=== PATIENT | female | born 1950 | race Caucasian/White ===

== ENCOUNTER 2016-11-01 19:16 | Emergency (ER) | payer MEDICARE, MEDICAID ==
[2016-11-01 19:37] VITALS: BP 135/94
[2016-11-01] MEDS ORDERED: traMADol TAB* 50 MG PO ONE (20:08)
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
== END 2016-11-01 20:30 | disposition home or self-care (01) ==
LOC: ED 19:16
DX: Z76.0 Encounter for issue of repeat prescription (principal); R52 Pain, unspecified; F17.210 Nicotine dependence, cigarettes, uncomplicated
CPT/HCPCS: 99281; A9270-GY

== ENCOUNTER 2017-02-18 17:37 | Emergency (ER) | payer MEDICARE, MEDICAID ==
[2017-02-18] MEDS ORDERED: Codeine TAB* 30 MG PO ONE ×2 (19:01)
[2017-02-18 19:45] VITALS: BP 144/77
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
== END 2017-02-18 19:44 | disposition home or self-care (01) ==
LOC: ED 17:37
DX: Z76.0 Encounter for issue of repeat prescription (principal); F17.210 Nicotine dependence, cigarettes, uncomplicated
CPT/HCPCS: 99281; A9270-GY

== ENCOUNTER → 2017-02-19 23:33 | Emergency (ER) | payer MEDICARE, MEDICAID | END | disposition left against medical advice (07) | LOC: ED 23:33 | DX: J34.89 Other specified disorders of nose and nasal sinuses (principal); M54.9 Dorsalgia, unspecified; M79.672 Pain in left foot; M79.671 Pain in right foot; Z53.21 Procedure and treatment not carried out due to patient leaving prior to being seen by health care provider ==

== ENCOUNTER → 2017-04-09 13:36 | Emergency (ER) | payer MEDICARE, MEDICAID ==
[2017-04-09 17:01] VITALS: BP 0/0
== END | disposition left against medical advice (07) ==
LOC: ED 13:36
DX: J34.89 Other specified disorders of nose and nasal sinuses (principal); Z53.21 Procedure and treatment not carried out due to patient leaving prior to being seen by health care provider
CPT/HCPCS: 99281

== ENCOUNTER 2017-05-03 19:42 | Inpatient (IN) | payer MEDICARE, MEDICAID ==
[2017-05-03 20:30] LABS: Hematocrit 44 % (35-47); Hemoglobin 14.3 g/dl (12.0-16.0); Mean Corpuscular HGB Conc 33 g/dl (31-36); Mean Corpuscular Hemoglobin 30 pg (27-31); Mean Corpuscular Volume 92 fL (80-97); Mean Platelet Volume 9 um3 (7.4-10.4); Red Blood Count 4.75 10^6/ul (4.0-5.4); Red Cell Distribution Width 14 % (10.5-15); White Blood Count 11.8 10^3/ul (3.5-10.8)
[2017-05-03 20:45] LABS: ALT 11 U/L (7-52); Alkaline Phosphatase 70 U/L (34-104); BUN/Creatinine Ratio 29.2 (8-20); Blood Urea Nitrogen 19 mg/dL (6-24); CO2 Carbon Dioxide 20 mmol/L (22-32); Chloride 107 mmol/L (101-111); EGFR Non-African American 91.8 (>60); Globulin 3.5 g/dL (2-4); Glucose 94 mg/dL (70-100); Sodium 134 mmol/L (133-145); Total Protein 7.5 g/dL (6.4-8.9)
[2017-05-03 20:48] LABS: Urine Bilirubin Negative (Negative); Urine Glucose Negative (Negative); Urine Nitrite Negative (Negative)
[2017-05-03 21:00] LABS: Benzodiazepine Urine Screen None Detected (None Detect)
[2017-05-03 21:06] LABS: Acetaminophen < 15 mcg/mL; Alcohol < 10 mg/dL (<10); Salicylate < 2.50 mg/dL (<30)
[2017-05-03 21:16] LABS: TSH (Thyroid Stimulating Horm) 1.49 mcIU/mL (0.34-5.60)
[2017-05-03 21:18] LABS: AST 12 U/L (13-39); Anion Gap 7 mmol/L (2-11); Potassium 3.9 mmol/L (3.5-5.0)
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
[2017-05-03] MEDS ORDERED: Haloperidol INJ IV/IM* 5 MG/ML AMP ONE (22:43)
[2017-05-03] MEDS ORDERED: LORazepam INJ* 2 MG/ML 1 ML VIAL ONE (22:43)
[2017-05-03] MEDS ORDERED: diPHENhydraMINE IV* 50 MG/ML 1 ml VIAL (BENADRYL) ONE (22:43)
[2017-05-04] MEDS ORDERED: traMADol TAB* 50 MG ONE
[2017-05-04] MEDS: Nicotine Inhaler* 10 MG AMP INH PRN
[2017-05-04] MEDS ORDERED: Mouth Piece, Nicotine* 1 EACH CARTRIDGE ONE (00:01)
[2017-05-04] MEDS ORDERED: Nicotine Inhaler* 10 MG AMP ONE (00:01)
[2017-05-04] MEDS ORDERED: Haloperidol TAB* 5 MG ONE (00:02)
[2017-05-04] MEDS ORDERED: Cyclobenzaprine TAB* 10 MG ONE (00:02)
[2017-05-04] MEDS ORDERED: Al Hydrox/Mg Hydrox/Simet LIQ* 30 ML UDC PO PRN (00:12)
[2017-05-04] MEDS ORDERED: Mouth Piece, Nicotine* 1 EACH CARTRIDGE INH SCH (00:12)
[2017-05-04] MEDS ORDERED: Nicotine GUM* 2 MG PO PRN (00:12)
[2017-05-04] MEDS: Acetaminophen TAB* 325 MG PO PRN (01:00)
[2017-05-04] MEDS ORDERED: LORazepam TAB(*) 1 MG ONE ×2 (01:00→02:45)
[2017-05-04] MEDS ORDERED: diPHENhydraMINE PO* 50 MG ONE (02:45)
[2017-05-04] MEDS ORDERED: diPHENhydraMINE PO* 50 MG PO ONE (03:00)
[2017-05-04] MEDS ORDERED: LORazepam TAB(*) 1 MG PO ONE (03:00)
[2017-05-04] MEDS: traMADol TAB* 50 MG PO PRN ×4 (05:05→22:32)
[2017-05-04] MEDS: Levothyroxine TAB* 137 MCG TAB PO SCH (06:00)
[2017-05-04] MEDS: Cyclobenzaprine TAB* 10 MG PO SCH ×2 (11:31)
[2017-05-04] MEDS: Nicotine PATCH 21 MG/24 HR* PATCH TRANSDERM SCH (11:32)
[2017-05-04] MEDS: Valsartan TAB* 160 MG PO SCH (11:33)
[2017-05-04] MEDS: Multivitamins ADULT w/MIN LIQ* 15 ML UDC PO SCH (11:36)
[2017-05-04] MEDS: Progesterone MICRONIZED(NF) 200 MG CAP PO SCH ×2 (11:47→20:48)
[2017-05-04] MEDS: Haloperidol TAB* 10 MG PO SCH ×2 (20:48)
[2017-05-04] MEDS: Nicotine Patch Removal NOTE PATCH OFF SCH (21:05)
--- NOTE | 2017-05-04 21:20 | HP ---
PSYCHIATRIC HISTORY AND PHYSICAL: DATE OF ADMISSION: 05/03/17 JUSTIFICATION FOR ADMISSION: The patient is in need of 24-hour supervision and care secondary to agitated psychotic behavior and inability to care for herself in a less restrictive setting. CHIEF COMPLAINT: "Why am I here? I need to get back to work." HISTORY OF PRESENT ILLNESS: The patient is a 66-year-old, single, white female with history of schizoaffective disorder, who arrives from the [facility] to the emergency department via ambulance, which she called with initial complaints of generalized pain, who presented as agitated, disruptive, and psychotic, resulting in involuntary psychiatric admission. My understanding is that she claims to have run out of her tramadol pain medication and came to the ED seeking pain relief. Apparently, she was not treated to her satisfaction, became agitated. She has a well known history of mental illness and has a tendency to call multiple local politicians as well as administrators here in our hospital claiming to be member of the [facility]. These delusions are fairly fixed; however, when she becomes psychiatrically destabilized, she tends to be more overt and more aggressive in her assertions. She was pressured, paranoid, disorganized, and delusional in our emergency room and verbal attempts to deescalate the patient were unsuccessful resulting in her receiving Haldol, Ativan, and Benadryl via IM injection after declining several oral versions of these medications. It is notable that her barbiturate screen was presumptive positive, although rest of her urine drug screen was negative. I did speak with member of [facility], who indicated that the patient has been noncompliant with medications or outpatient therapies since being discharged from [facility] in August of 2016. PAST PSYCHIATRIC HISTORY: The patient's most recent hospitalization here at [facility] was in July of 2016 under the service of Dr. Vazquez. At that time, she was quite agitated and refusing medications and was discharged to the [facility]. There at [facility] , she pursued release through the court and actually won her case and was discharged following only a week and a half of state psychiatric hospitalization. Since there, it is not clear that she had any mental health treatment. She has had multiple state hospitalizations in the past. One of interesting facet of her illnesses is that she did not develop mental illness until her late 30s. Prior to this, she had been fairly normal and able to function in the community independently. Since the onset of her illness, she has been difficult to treat due to chronic paranoia and thought disorganization. Her most recent diagnoses include schizoaffective disorder, bipolar type, as well as borderline personality disorder. SUBSTANCE ABUSE HISTORY: There is an indication that she has been a heavy abuser of opioid pain relievers in the past; however, she denies this. Urine drug screen is positive for barbiturates. She denies to me that she abuses illicit drugs or alcohol. She does admit to smoking between 1 and 2 packs of cigarettes per day. PAST MEDICAL HISTORY: Significant for arthritis, chronic back pain, chronic knee pain, history of foot plantar fasciitis, history of duodenal ulcer with GI bleed in 2000, migraine headaches, history of fracture of nose, hypertension, and hypothyroidism. FAMILY PSYCHIATRIC HISTORY: The patient denies any mental illness in her extended family. SOCIAL HISTORY: The patient lives in the [facility] with a cat. She states she has never been . She does not have any children. She does have a sister named Shanthi. She does have case management services through adult protective services. Currently, she is on disability and is her own equal opportunity representative payee, although this function used to be handled by adult protective services. The patient reports that she graduated from [employer] with a BA in Latvian literature; however, we cannot confirm this. She is currently unemployed, although she insists that she works for the [employer]. She denies any history of legal problems, although it is clear that she was on an AOT at one point, most likely between 2003 and 2004. REVIEW OF SYSTEMS: The patient denies headache or double vision. She does endorse neuropathic pain in her feet as well as sore back. Other than this, she denies sore throat, cough, chest pain, or difficulty breathing. She denies abdominal pain, nausea, vomiting, diarrhea, or constipation. She denies difficulty ambulating, rashes, enlarged lymph nodes, changes in weight, or fevers. PHYSICAL EXAMINATION VITAL SIGNS: Blood pressure 133/97, heart rate 102, respiratory rate 18, temperature 98.4 degrees Fahrenheit, oxygen saturations are 97% on room air. HEENT: Head is normocephalic, atraumatic. NECK: Supple. CHEST: Clear to auscultation bilaterally. CARDIAC: Exam reveals normal heart sounds. ABDOMEN: Soft and nontender. MUSCULOSKELETAL: Reveals full range of motion in all 4 extremities. NEUROLOGICAL: She appears to be grossly intact with no focal deficits. SKIN: Warm and dry. MENTAL STATUS EXAM: The patient is a middle-aged, white female, with close- cut guaman hair, eye glasses. She is somewhat disheveled, wearing a bulky, oversized black T-shirt, black pants. Her speech is loud and quite expressive, somewhat difficult to establish a rapport with her. She is paranoid and suspicious. Mood appears to be irritable with a somewhat labile affect. Thought process is disorganized and highly somatic. Thought Content: Significant for delusions that she is in the [place]. She denies auditory or visual hallucinations. Insight and judgment are markedly impaired given her noncompliance with outpatient treatment. Cognitively, she is awake and alert with what would appear to be an average intellect. LABORATORY DATA: Complete blood count reveals slightly elevated white blood cells at 11.8, lymphocyte percentage is low at 23.4. Complete metabolic panel shows an elevated CDB-ri-delvxaxgyb ratio of 29.2. AST is low at 12. Urinalysis is within normal limits. Urine drug screen is positive only for barbiturates. Negative for all other substance tested including alcohol. DIAGNOSES: [place] I: Schizoaffective disorder, bipolar type. [place] II: Borderline personality disorder by history. [place] III: Arthritis, chronic back pain, chronic right knee pain, history of plantar fasciitis, history of duodenal ulcer, migraine, history of fracture of nose, hypertension, and hypothyroidism. [place] IV: Severe primary support and housing stressors. [place] V: At this time is 30. IMPRESSION: The patient is a 66-year-old, single, white female with schizoaffective disorder, who brought herself to the emergency room seeking relief from pain, but was quite agitated and psychotic in the emergency room resulting in stat medications and involuntary admission to the behavioral science unit. She has not been compliant with medications and is quite irritable, paranoid, and labile. She is demanding release at this time. PLAN: The patient is admitted to the behavioral health unit on the adult side and placed on q.15-minute checks for her own safety. We have resumed her outpatient medication regimen including cyclobenzaprine 5 mg daily, Haldol 10 mg nightly, Synthroid 137 mcg daily, progesterone 200 mg p.o. b.i.d., valsartan 160 mg p.o. daily, and tramadol 50 mg every 6 hours as needed for pain. We will check and see whether she is compliant with medications and if she is not, it may require that we go to court for treatment over objection, we cannot rule out transfer to the [facility] psychiatric facility at this time. [id number]/CPS #: [id number] [address] HOSPITALJessica
[2017-05-05] MEDS: traMADol TAB* 50 MG PO PRN ×3 (07:10→20:09)
[2017-05-05] MEDS: Cyclobenzaprine TAB* 10 MG PO SCH (08:28)
[2017-05-05] MEDS: Levothyroxine TAB* 137 MCG TAB PO SCH (08:28)
[2017-05-05] MEDS: Valsartan TAB* 160 MG PO SCH (08:28)
[2017-05-05] MEDS: Multivitamins ADULT w/MIN LIQ* 15 ML UDC PO SCH (08:29)
[2017-05-05] MEDS: Nicotine PATCH 21 MG/24 HR* PATCH TRANSDERM SCH (08:30)
[2017-05-05] MEDS: Progesterone MICRONIZED(NF) 200 MG CAP PO SCH ×2 (08:31→20:44)
[2017-05-05] MEDS: Nicotine Inhaler* 10 MG AMP INH PRN (10:38)
--- NOTE | 2017-05-05 15:30 | PN ---
Subjective - Subjective Service Type: 25108 Hosp care 15 min low complexity Subjective: The patient is calm and respectful, albeit delusional. She has represented no behavioral problems on the unit and would like to be discharged. She is compliant with haloperidol 10mg PO nightly. Objective - Appearance Appearance: Well Developed/Nourished Dysmorphic Features: No Hygiene: Normal Grooming: Fairly Well Kept - Behavior Psychomotor Activities: Normal Exhibits Abnormal Movement: No - Attitude and Relatedness Attitude and Relatedness: Cooperative Eye Contact: Fair - Speech Quality: Unpressured Latencies: Normal Quantity: Appropriate - Mood Patient's Decription of Mood: "Fine" - Affect Observed Affect: Fair Affect Consistent with: Euthymia - Thought Process Patient's Thought Process: Disorganized Thought Content: Yes Paranoid Ideation, No Passive Wish, No Suicidal Planning, No Homicidal Ideation - Sensorium Experiencing Hallucinations: No, Sensorium is Clear Type of Hallucinations: Visual: No, Auditory: No, Command: No - Level of Consciousness Level of Consciousness: Alert Orientation: Yes Intact, Yes Orientated to Time, Yes Orientated to Place, Yes Orientated to Person - Impulse Control Impulse Control: Poor - Insight and Judgement Insight and Judgement: Impaired - Group Participation Particating in Group Activities: No - Medication Management Medication Management Adherence: Yes Assessment - Assessment Merits Inpatient Hospitalization: Consolidate Improvements, Pending Safe DC Plan Inpatient DSM-IV Dx: Schizoaffective, Bipolar Type Clinical Impression: 66 y.o. chronically mentally ill, domiciled, single, white female with a hx of schizoaffective DO who self-referred to the ED for chief complaint of back pain , who was subsequently agitated and psychotic in the ER, requiring stat antipsychotic medications and involuntary admission to the [facility] for her inability to care for herself. Plan - Plan Treatment Plan: Name: MAGALIE MORRISSEY Birthdate: 1950 [id number] Patient compliant with haldol 10mg nightly and this is the best her behavior has likely been on our unit. Will continue to observe and treat and consider d/ c to home tomorrow, (05/06). Continued Medication Management: Continue Outpt Medication Medications: Current Medications Acetaminophen (Tylenol Tab*) 650 mg PO Q4H PRN PRN Reason: PAIN or TEMP > 101 F Last Admin: 05/04/17 01:00 Dose: 650 mg Al Hydrox/Mg Hydrox/Simethicone (Maalox Plus*) 30 ml PO Q4H PRN PRN Reason: INDIGESTION Cyclobenzaprine HCl (Flexeril Tab*) 5 mg PO DAILY [facility] Last Admin: 05/05/17 08:28 Dose: 5 mg Device (Nicotine Mouth Piece*) 1 each INH .[facility] Haloperidol (Haldol Tab*) 10 mg PO BEDTIME [facility] Last Admin: 05/04/17 20:48 Dose: 10 mg Levothyroxine Sodium (Synthroid Tab*) 68.5 mcg PO DAILY@0600 [facility] Multivitamins (Theragran W/Minerals Liq*) 15 ml PO DAILY [facility] Last Admin: 05/05/17 08:29 Dose: 15 ml Nicotine (Nicotine Inhaler*) 10 mg INH Q2H PRN PRN Reason: CRAVING Last Admin: 05/05/17 10:38 Dose: 10 mg Nicotine (Nicotine Patch 21 Mg/24 Hr*) 1 patch TRANSDERM DAILY@0800 [facility] Last Admin: 05/05/17 08:30 Dose: 1 patch Nicotine Polacrilex (Nicotine Gum*) 2 mg PO Q2H PRN PRN Reason: CRAVING Pharmacy Profile Note (Nicotine Patch Removal Note*) 1 note PATCH OFF 1999 [facility] Last Admin: 05/04/17 21:05 Dose: 1 note Progesterone (Progesterone Micronized(Nf)) 200 mg PO BID [facility] Last Admin: 05/05/17 08:31 Dose: Not Given Tramadol HCl (Ultram*) 50 mg PO Q6H PRN PRN Reason: PAIN - BACK Last Admin: 05/05/17 13:08 Dose: 50 mg Valsartan (Diovan Tab*) 160 mg PO DAILY [facility] Last Admin: 05/05/17 08:28 Dose: 160 mg - Discharge Plan Discharge Plan: Inpatient Hospitalization
[2017-05-05] MEDS: Acetaminophen TAB* 325 MG PO PRN ×2 (16:29→21:16)
[2017-05-05] MEDS: Nicotine Patch Removal NOTE PATCH OFF SCH (20:43)
[2017-05-05] MEDS: Haloperidol TAB* 10 MG PO SCH (20:43)
[2017-05-06] MEDS: traMADol TAB* 50 MG PO PRN ×2 (03:20→09:28)
[2017-05-06] MEDS ORDERED: Levothyroxine TAB* 137 MCG TAB PO SCH (06:00)
[2017-05-06 08:00] VITALS: BP 140/85
[2017-05-06] MEDS: Nicotine PATCH 21 MG/24 HR* PATCH TRANSDERM SCH (08:22)
[2017-05-06] MEDS: Progesterone MICRONIZED(NF) 200 MG CAP PO SCH (08:22)
[2017-05-06] MEDS: Valsartan TAB* 160 MG PO SCH (08:23)
[2017-05-06] MEDS: Multivitamins ADULT w/MIN LIQ* 15 ML UDC PO SCH (08:23)
[2017-05-06] MEDS: Cyclobenzaprine TAB* 10 MG PO SCH (09:29)
[2017-05-06] MEDS: Nicotine Inhaler* 10 MG AMP INH PRN (11:46)
--- NOTE | 2017-05-06 22:18 | DS ---
DISCHARGE SUMMARY: DATE OF ADMISSION: 05/03/17 DATE OF DISCHARGE: 05/06/17 DISCHARGE DIAGNOSES: [place] I: Schizoaffective disorder, bipolar type. [place] II: Borderline personality disorder by history. [place] III: Arthritis, chronic back pain, chronic right knee pain, history of plantar fascitis, history of duodenal ulcer, migraine, history of fracture of nose, hypertension, and hypothyroidism. [place] IV: Severe primary support and housing stressors. [place] V: At the time of admission was 32 and at the time of discharge is 55. CONDITION AT THE TIME OF DISCHARGE: Improved. The patient is no longer agitated. She has been calm and cooperative throughout her hospitalization. Safe on all checks. She has been taking her medication as prescribed and she is willing to continue to receive treatment in an outpatient setting. The patient has represented no behavior problems on our unit and we do not feel that it is warranted to continue to treat her in such a restrictive setting. For these reasons, it has been determined that she would be safe for discharge and willing to follow up at [facility] and she has a safe apartment in the community to return to. It is notable that the patient remains delusional; for example, feeling that she is a utility agent. These delusions very much represent her baseline and are not likely amenable to inpatient psychiatric treatment. The patient has requested that her medications be called into the [facility] on [facility] and she intends to continue to take them for the time being. MENTAL STATUS EXAM: The patient is a middle aged white female with close cut smith hair, eye glasses. She is wearing a bulky oversized black T-shirt and blank pants. Her speech is terse with the normal rate and tone and volume. Mood is euthymic with a full affect. Thought process is linear and goal directed. Thought content is delusional with standard baseline delusions of being in the [place]. She is denying suicidal or homicidal ideation. She denies auditory or visual hallucinations. Insight and judgement is fair given her willingness to follow up with outpatient treatment. Cognitively, she is awake and alert with what would appear to be an average intellect. DISCHARGE INSTRUCTIONS: Discharge instructions to the patient are as follows: A. Medications: 1. She takes nicotine 21 mg transdermal daily. 2. She takes Haldol 10 mg p.o. q. nightly. 3. Flexeril 5 mg p.o. daily. 4. Synthroid 68.5 mcg p.o. daily. 5. Therapeutic vitamin 1 tablet p.o. daily. 6. Benicar 20 mg p.o. daily. 7. Progesterone 200 mg p.o. b.i.d. 8. Ultram 50 mg p.o. q.6 hours. B. Diet: Regular. C. Activity: As tolerated. The patient is actively trying to discontinue tobacco usage and for this reason , she is agreeable to continuing to take nicotine patch 21 mg transdermally once daily. There are no laboratory or diagnostic studies pending at the time of discharge. D. Followup care: The patient will follow up at the [facility] within 1 week of discharge. HOSPITAL COURSE: Part A. Reason for admission: The patient is a 66-year-old single white female with a history of schizoaffective disorder who arrives from the [facility] to the emergency department via ambulance which she called herself with an initial complaint of generalized pain who went on to present as agitated, disruptive, and psychotic resulting in involuntary psychiatric admission. My understanding is that she claims to have run out of her tramadol pain medication and came to the ED seeking pain relief. Apparently, she was not treated to her satisfaction, became agitated. She has a well-known history of mental illness and has a tendency to call multiple local politicians as well as hospital administrators claiming to be a member of the [facility]. These delusions are fixed; however, when she becomes psychiatrically destabilized, she tends to be more overt and more aggressive in her assertions. In our ED, she was pressured, paranoid, disorganized, and delusional and verbal attempts to deescalate her were unsuccessful ultimately resulting in her receiving Haldol, Ativan and Benadryl via IM injections. It is notable that her barbiturate screen was presumptive positive although the rest of her urine drug screen was negative. I was able to speak with a member of [facility], who indicated that the patient has been noncompliant with medication and outpatient therapies since being discharged from the [facility] in August of 2016. Part B. Psychiatric treatment rendered: The patient was admitted to the adult behavioral health unit where she was placed on q.15-minute checks for her own safety. She took her oral medications in a compliant fashion on the first night of her admission including p.o. Haldol 10 mg. Thereafter, she was safe and cooperative on all checks. By the time I first saw her on the first complete day of her admission, she was already under good behavior control. She was respectful, calm and was not overtly announcing any of her delusional beliefs. To the contrary, she stated she was willing to re-engage with [facility]. She stated that the Haldol was a reasonable medication choice for her and she continued to be adherent with this throughout the remainder of the hospitalization. At this time, the patient only is endorsing delusional ideation when pressed about these subjects. She is calm, cooperative. She is requesting a cab ride home. She has an intact apartment situation at the [facility] and we do not see any benefit to further involuntary inpatient treatment. [id number]/CPS #: [id number] MTDD
== END 2017-05-06 12:30 | disposition home or self-care (01) | DRG 885 ==
LOC: ED 19:42 → BSU 22:59
PROVIDERS: ADMIT Psychiatry & Neurology Psychiatry; ATTEND Psychiatry & Neurology Psychiatry
DX: F25.0 Schizoaffective disorder, bipolar type (principal); B19.10 Unspecified viral hepatitis B without hepatic coma; I10 Essential (primary) hypertension; F60.3 Borderline personality disorder; M19.90 Unspecified osteoarthritis, unspecified site; G89.29 Other chronic pain; M54.9 Dorsalgia, unspecified; M25.561 Pain in right knee; G43.909 Migraine, unspecified, not intractable, without status migrainosus; E03.9 Hypothyroidism, unspecified; F17.210 Nicotine dependence, cigarettes, uncomplicated; J44.9 Chronic obstructive pulmonary disease, unspecified; B19.20 Unspecified viral hepatitis C without hepatic coma; Z91.14 Patient's other noncompliance with medication regimen; Z88.0 Allergy status to penicillin; Z88.8 Allergy status to other drugs, medicaments and biological substances; Z56.0 Unemployment, unspecified; Z87.898 Personal history of other specified conditions; Z90.710 Acquired absence of both cervix and uterus
CPT/HCPCS: 36415; 80053; 80307; 80320; 80329; 81003; 84443; 85025; 99222; 99231; 99238; A9270-GY; G0480; J1200; J1630; J2060

== ENCOUNTER 2017-06-20 18:49 | Emergency (ER) | payer MEDICARE, MEDICAID ==
[2017-06-20] MEDS ORDERED: traMADol TAB* 50 MG PO ONE ×2 (19:25→19:31)
[2017-06-20 19:40] VITALS: BP 127/79
--- NOTE | 2017-06-21 06:15 | ED ---
Vidal Grace Alfonso, scribed for Rob Moran MD on 06/20/17 at 1925 . Complex/Multi-Sys Presentation - HPI Summary HPI Summary: This patient is a 66 year old F presenting to [facility] with a chief complaint of chronic pain since two days ago. Her pain is in her neck, shoulders, back, hips , and feet. She reports vomiting the remainder of her tramadol prescription. She reports having a PCP appointment on 07/05/17. She reports missing two PCP appointments, and disputing her status as a patient with her PCP. The patient rates the pain 9/10 in severity. Pain alleviated by nothing. Patient reports N/ V (two days ago). Patient denies diarrhea, constipation, and abdominal pain. - History Of Current Complaint Chief Complaint: EDGeneral Time Seen by Provider: 06/20/17 19:12 Hx Obtained From: Patient Onset/Duration: Sudden Onset, Lasting Days - 2, Still Present Timing: Constant Severity Initially: Severe - 9/10 pain Alleviating Factor(s): nothing Associated Signs And Symptoms: Positive: Other - N/V (two days ago). Patient denies diarrhea, constipation, and abdominal pain. - Allergies/Home Medications Allergies/Adverse Reactions: Allergies Allergy/AdvReac Type Severity Reaction Status Date / Time Chlorine Allergy Vomiting Verified 06/20/17 18:54 Penicillins Allergy Hallucinati Verified 06/20/17 18:54 ons Red Dye Allergy See Comment Verified 06/20/17 18:54 PMH/Surg Hx/FS Hx/Imm Hx Endocrine/Hematology History: Reports: Hx Thyroid Disease Denies: Hx Anticoagulant Therapy, Hx Blood Disorders, Hx Blood Transfusions, Hx Bone Marrow Disease, Hx Diabetes, Hx Sickle Cell Disease, Hx Unexplained Bleeding Cardiovascular History: Reports: Hx Hypertension Denies: Hx Pacemaker/ICD Respiratory History: Reports: Hx Chronic Obstructive Pulmonary Disease (COPD) Denies: Hx Asthma History: Denies: Hx Renal Disease Musculoskeletal History: Reports: Hx Back Problems Sensory History: Reports: Hx Contacts or Glasses Denies: Hx Hearing Aid Opthamlomology History: Reports: Hx Contacts or Glasses Neurological History: Reports: Hx Migraine Denies: Hx Dementia, Hx Developmental Delay, Hx Headaches, Hx Seizures, Hx Spinal Cord Injury, Hx Transient Ischemic Attacks (TIA), Other Neuro Impairments /Disorders Psychiatric History: Reports: Hx Inpatient Treatment, Hx Community Mental Health Tx, Hx Schizophrenia, Hx Bipolar Disorder, Hx Substance Abuse, Other Psychiatric Issues/Disorders - schizoaffective d/o Denies: Hx Anxiety, Hx Attention Deficit Hyperactivity Disorder, Hx Eating Disorder, Hx Depression, Hx Panic Disorder, Hx Post Traumatic Stress Disorder, Hx of Violent Episodes Against Others - Surgical History Surgery Procedure, Year, and Place: h/o hysterectomy Infectious Disease History: No Infectious Disease History: Reports: Hx Hepatitis - Hep B&C Denies: Hx Clostridium Difficile, Hx Human Immunodeficiency Virus (HIV), Hx Shingles, Hx Tuberculosis, Traveled Outside the [place] in Last 30 Days - Family History Known Family History: Positive: Other - neg: mental health illnesses - Social History Alcohol Use: None Hx Substance Use: Yes Substance Use Type: Reports: Prescribed Hx Tobacco Use: Yes Smoking Status (MU): Heavy Every Day Tobacco Smoker Type: Cigarettes Have You Smoked in the Last Year: Yes Review of Systems Negative: Fever Positive: Vomiting, Nausea, Other - Negative constipation. Negative: Abdominal Pain, Diarrhea Positive: Other - chronic pain All Other Systems Reviewed And Are Negative: Yes Physical Exam - Summary Physical Exam Summary: VITAL SIGNS: Reviewed. GENERAL: Patient is a well-developed and nourished female who is pacing in the room with a good steady walk complaining of pain. Patient is not in any acute respiratory distress. HEAD AND FACE: No signs of trauma. No ecchymosis, hematomas or skull depressions. No sinus tenderness. EYES: PERRLA, EOMI x 2, No injected conjunctiva, no nystagmus. EARS: Hearing grossly intact. Ear canals and tympanic membranes are within normal limits. MOUTH: Oropharynx within normal limits. NECK: Supple, trachea is midline, no adenopathy, no JVD, no carotid bruit, no c- spine tenderness, neck with full ROM. CHEST: Symmetric, no tenderness at palpation LUNGS: Clear to auscultation bilaterally. No wheezing or crackles. CVS: Regular rate and rhythm, S1 and S2 present, no murmurs or gallops appreciated. ABDOMEN: Soft, non-tender. No signs of distention. No rebound no guarding, and no masses palpated. Bowel sounds are normal. EXTREMITIES: FROM in all major joints, no edema, no cyanosis or clubbing. NEURO: Alert and oriented x 3. No acute neurological deficits. Speech is normal and follows commands. SKIN: Dry and warm Triage Information Reviewed: Yes Vital Signs On Initial Exam: Initial Vitals Temp Pulse Resp BP Pulse Ox 97.1 F 103 20 146/108 97 06/20/17 18:51 06/20/17 18:51 06/20/17 18:51 06/20/17 18:51 06/20/17 18:51 Vital Signs Reviewed: Yes Diagnostics - Vital Signs Vital Signs Temp Pulse Resp BP Pulse Ox 06/20/17 18:51 97.1 F 103 20 146/108 97 - Laboratory Lab Statement: Any lab studies that have been ordered have been reviewed, and results considered in the medical decision making process. Complex Multi-Symp Course/Dx Assessment/Plan: This patient is a 66 year old F presenting to [facility] with a chief complaint of chronic pain since two days ago. Her pain is in her neck, shoulders, back, hips, and feet. She reports vomiting the remainder of her tramadol prescription. She reports having a PCP appointment on 07/05/17. She reports missing two PCP appointments, and disputing her status as a patient with her PCP. The patient rates the pain 9/10 in severity. Pain alleviated by nothing. Patient reports N/V (two days ago). Patient denies diarrhea, constipation, and abdominal pain. This patient reports a history of chronic pain. She ran out of pain medication, thus is requesting Ultram. She reports a PCP appointment scheduled on 07/05/17, and she will call tomorrow to schedule another PCP appointment sooner. She will be discharged to home and will follow up from her PCP. The patient is agreeable with this plan. The patient is hemodynamically stable and alert and oriented x3. - Diagnoses Provider Diagnoses: Chronic pain Discharge - Discharge Plan Condition: Stable Disposition: HOME Patient Education Materials: Chronic Pain (ED) Referrals: Fabricio Oropeza DO [Primary Care Provider] - 1 Day Additional Instructions: RETURN TO THE EMERGENCY DEPARTMENT FOR CHANGING OR WORSENING SYMPTOMS. The documentation as recorded by the Vidal ashton Alfonso accurately reflects the service I personally performed and the decisions made by me, Rob Moran MD.
== END 2017-06-20 19:45 | disposition home or self-care (01) ==
LOC: ED 18:49
DX: G89.29 Other chronic pain (principal); I10 Essential (primary) hypertension; E07.9 Disorder of thyroid, unspecified; M54.2 Cervicalgia; M25.512 Pain in left shoulder; M25.511 Pain in right shoulder; M25.552 Pain in left hip; M25.551 Pain in right hip; M79.672 Pain in left foot; M79.671 Pain in right foot
CPT/HCPCS: 99281; A9270-GY

== ENCOUNTER 2017-06-21 19:44 | Emergency (ER) | payer MEDICARE, MEDICAID ==
[2017-06-21] MEDS ORDERED: traMADol TAB* 50 MG PO ONE (22:09)
--- NOTE | 2017-06-21 22:14 | ED ---
Lower Extremity - HPI Summary HPI Summary: Angelia has been having some body work done on her right hip and that has caused it to hurt. She called her MD who called in a prescription for tramadol but she can't fill it until tomorrow AM and carmelina in requesting tramadol to get her though the night. - History of Current Complaint Chief Complaint: EDPrescriptionNeeded Stated Complaint: PAIN ALL OVER Hx Obtained From: Patient Mechanism Of Injury: Other - PT Onset of Pain: Hours Onset/Duration: Hours Severity Initially: Moderate Severity Currently: Moderate Pain Intensity: 8 Timing: Constant Location: Is Discrete @ - right hip Character Of Pain: Sharp Associated Signs And Symptoms: Positive: Negative Aggravating Factor(s): Standing, Ambulation Alleviating Factor(s): Nothing Able to Bear Weight: Yes - Allergies/Home Medications Allergies/Adverse Reactions: Allergies Allergy/AdvReac Type Severity Reaction Status Date / Time Chlorine Allergy Vomiting Verified 06/20/17 18:54 Penicillins Allergy Hallucinati Verified 06/20/17 18:54 ons Red Dye Allergy See Comment Verified 06/20/17 18:54 PMH/Surg Hx/FS Hx/Imm Hx Endocrine/Hematology History: Reports: Hx Thyroid Disease Denies: Hx Anticoagulant Therapy, Hx Blood Disorders, Hx Blood Transfusions, Hx Bone Marrow Disease, Hx Diabetes, Hx Sickle Cell Disease, Hx Unexplained Bleeding Cardiovascular History: Reports: Hx Hypertension Denies: Hx Pacemaker/ICD Respiratory History: Reports: Hx Chronic Obstructive Pulmonary Disease (COPD) Denies: Hx Asthma History: Denies: Hx Renal Disease Musculoskeletal History: Reports: Hx Back Problems Sensory History: Reports: Hx Contacts or Glasses Denies: Hx Hearing Aid Opthamlomology History: Reports: Hx Contacts or Glasses Neurological History: Reports: Hx Migraine Denies: Hx Dementia, Hx Developmental Delay, Hx Headaches, Hx Seizures, Hx Spinal Cord Injury, Hx Transient Ischemic Attacks (TIA), Other Neuro Impairments /Disorders Psychiatric History: Reports: Hx Inpatient Treatment, Hx Community Mental Health Tx, Hx Schizophrenia, Hx Bipolar Disorder, Hx Substance Abuse, Other Psychiatric Issues/Disorders - schizoaffective d/o Denies: Hx Anxiety, Hx Attention Deficit Hyperactivity Disorder, Hx Eating Disorder, Hx Depression, Hx Panic Disorder, Hx Post Traumatic Stress Disorder, Hx of Violent Episodes Against Others - Surgical History Surgery Procedure, Year, and Place: h/o hysterectomy Infectious Disease History: No Infectious Disease History: Reports: Hx Hepatitis - Hep B&C Denies: Hx Clostridium Difficile, Hx Human Immunodeficiency Virus (HIV), Hx Shingles, Hx Tuberculosis, Traveled Outside the [place] in Last 30 Days - Family History Known Family History: Positive: Other - neg: mental health illnesses - Social History Alcohol Use: None Hx Substance Use: Yes Substance Use Type: Reports: Prescribed Hx Tobacco Use: Yes Smoking Status (MU): Heavy Every Day Tobacco Smoker Type: Cigarettes Have You Smoked in the Last Year: Yes Review of Systems Positive: Arthralgia, Myalgia All Other Systems Reviewed And Are Negative: Yes Physical Exam Triage Information Reviewed: Yes Vital Signs On Initial Exam: Initial Vitals Temp Pulse Resp BP Pulse Ox 97.7 F 103 20 121/92 97 06/21/17 20:07 06/21/17 20:07 06/21/17 20:07 06/21/17 20:07 06/21/17 20:07 Vital Signs Reviewed: Yes Appearance: Positive: Well-Appearing Skin: Positive: Warm Eyes: Positive: Normal Respiratory/Lung Sounds: Positive: Breath Sounds Present Cardiovascular: Positive: Normal Musculoskeletal: Positive: Normal Neurological: Positive: Normal Diagnostics - Vital Signs Vital Signs Temp Pulse Resp BP Pulse Ox 06/21/17 20:07 97.7 F 103 20 121/92 97 - Laboratory Lab Statement: Any lab studies that have been ordered have been reviewed, and results considered in the medical decision making process. Lower Extremity Course/Dx - Diagnoses Provider Diagnoses: Acute right hip pain Discharge - Discharge Plan Condition: Stable Disposition: HOME
[2017-06-21 22:25] VITALS: BP 122/91
== END 2017-06-21 22:23 | disposition home or self-care (01) ==
LOC: ED 19:44
DX: M25.551 Pain in right hip (principal); I10 Essential (primary) hypertension; J44.9 Chronic obstructive pulmonary disease, unspecified; F20.9 Schizophrenia, unspecified; F31.9 Bipolar disorder, unspecified; F17.210 Nicotine dependence, cigarettes, uncomplicated
CPT/HCPCS: 99282; A9270-GY

== ENCOUNTER → 2017-07-21 06:19 | Emergency (ER) | payer MEDICARE, MEDICAID ==
[2017-07-21 06:24] VITALS: BP 159/106
== END | disposition left against medical advice (07) ==
LOC: ED 06:19
DX: R52 Pain, unspecified (principal); Z53.21 Procedure and treatment not carried out due to patient leaving prior to being seen by health care provider

== ENCOUNTER 2017-08-02 16:50 | Emergency (ER) | payer MEDICARE, MEDICAID ==
[2017-08-02 19:31] VITALS: BP 169/103
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
== END 2017-08-02 20:01 | disposition home or self-care (01) ==
LOC: ED 16:50
DX: G89.29 Other chronic pain (principal); J44.9 Chronic obstructive pulmonary disease, unspecified; F17.210 Nicotine dependence, cigarettes, uncomplicated; Z88.0 Allergy status to penicillin
CPT/HCPCS: 99281

== ENCOUNTER 2017-09-11 19:11 | Emergency (ER) | payer MEDICARE, MEDICAID ==
[2017-09-11] MEDS ORDERED: traMADol TAB* 50 MG PO ONE (20:43)
--- NOTE | 2017-09-11 21:01 | ED ---
Darryl Grace Tiffany, scribed for Fito Simmons on 09/11/17 at 2047 . Complex/Multi-Sys Presentation - HPI Summary HPI Summary: This patient is a 67 year old F presenting to [facility] with a chief complaint of chronic body pain since one hour ago. The patient rates the pain 9/10 in severity. Symptoms aggravated by nothing. Symptoms alleviated by nothing. Patient requests prescription for Tramadol because her primary care provider was unable to refill her prescription. - History Of Current Complaint Chief Complaint: EDGeneral Time Seen by Provider: 09/11/17 20:27 Hx Obtained From: Patient Onset/Duration: Lasting Hours - 1 hour, Still Present Severity Currently: Severe - 9/10 Aggravating Factor(s): Nothing Alleviating Factor(s): Nothing - Allergies/Home Medications Allergies/Adverse Reactions: Allergies Allergy/AdvReac Type Severity Reaction Status Date / Time Chlorine Allergy Vomiting Verified 07/21/17 06:25 Penicillins Allergy Hallucinati Verified 07/21/17 06:25 ons Red Dye Allergy See Comment Verified 07/21/17 06:25 PMH/Surg Hx/FS Hx/Imm Hx Previously Healthy: No Endocrine/Hematology History: Reports: Hx Thyroid Disease Denies: Hx Anticoagulant Therapy, Hx Blood Disorders, Hx Blood Transfusions, Hx Bone Marrow Disease, Hx Diabetes, Hx Sickle Cell Disease, Hx Unexplained Bleeding Cardiovascular History: Reports: Hx Hypertension Denies: Hx Pacemaker/ICD Respiratory History: Reports: Hx Chronic Obstructive Pulmonary Disease (COPD) Denies: Hx Asthma History: Denies: Hx Renal Disease Musculoskeletal History: Reports: Hx Back Problems Sensory History: Reports: Hx Contacts or Glasses Opthamlomology History: Reports: Hx Contacts or Glasses Neurological History: Reports: Hx Migraine Denies: Hx Dementia, Hx Developmental Delay, Hx Headaches, Hx Seizures, Hx Spinal Cord Injury, Hx Transient Ischemic Attacks (TIA), Other Neuro Impairments /Disorders Psychiatric History: Reports: Hx Inpatient Treatment, Hx Community Mental Health Tx, Hx Schizophrenia, Hx Bipolar Disorder, Hx Substance Abuse, Other Psychiatric Issues/Disorders - schizoaffective d/o Denies: Hx Anxiety, Hx Attention Deficit Hyperactivity Disorder, Hx Eating Disorder, Hx Depression, Hx Panic Disorder, Hx Post Traumatic Stress Disorder, Hx of Violent Episodes Against Others - Surgical History Surgery Procedure, Year, and Place: h/o hysterectomy Infectious Disease History: No Infectious Disease History: Reports: Hx Hepatitis - Hep B&C Denies: Hx Clostridium Difficile, Hx Human Immunodeficiency Virus (HIV), Hx Shingles, Hx Tuberculosis, Traveled Outside the [place] in Last 30 Days - Family History Known Family History: Positive: Other - neg: mental health illnesses - Social History Alcohol Use: Occasionally Alcohol Amount: "once or twice a month" Hx Substance Use: Yes Substance Use Type: Reports: None Hx Tobacco Use: Yes Smoking Status (MU): Heavy Every Day Tobacco Smoker Type: Cigarettes Have You Smoked in the Last Year: Yes Review of Systems Negative: Fever Positive: Other - Chronic body pain All Other Systems Reviewed And Are Negative: Yes Physical Exam - Summary Physical Exam Summary: Appearance: Well appearing, no pain distress Skin: warm, dry, reflects adequate perfusion Head/face: normal Eyes: EOMI, DEBI ENT: normal Neck: supple, non-tender Respiratory: CTA, breath sounds present Cardiovascular: RRR, pulses symmetrical Abdomen: non-tender, soft Bowel: present Musculoskeletal: normal, strength/ROM intact Neuro: normal, sensory motor intact, A&Ox3 Triage Information Reviewed: Yes Vital Signs On Initial Exam: Initial Vitals Temp Pulse Resp BP Pulse Ox 97.1 F 92 18 140/81 96 09/11/17 19:15 09/11/17 19:15 09/11/17 19:15 09/11/17 19:15 09/11/17 19:15 Vital Signs Reviewed: Yes - [place] Coma Scale Coma Scale Total: 15 Diagnostics - Vital Signs Vital Signs Temp Pulse Resp BP Pulse Ox 09/11/17 19:15 97.1 F 92 18 140/81 96 - Laboratory Lab Statement: Any lab studies that have been ordered have been reviewed, and results considered in the medical decision making process. Complex Multi-Symp Course/Dx Course Of Treatment: This patient is a 67 year old F presenting to [facility] with a chief complaint of chronic body pain since one hour ago. Patient requests prescription for Tramadol because her primary care provider was unable to refill her prescription. In the ED course the patient was given Ultram. Patient will be discharged with prescription for Ultram and follow up from PCP. The patient is agreeable with this plan. - Diagnoses Provider Diagnoses: Chronic body pain, Drug-seeking behavior Discharge - Discharge Plan Condition: Stable Disposition: HOME Prescriptions: traMADol TAB* [Ultram*] 50 mg PO Q12H PRN #10 tab MDD 2 PRN Reason: Pain Patient Education Materials: Chronic Pain (ED) Referrals: Yvonne Espinosa MD [Primary Care Provider] - 3 Days Additional Instructions: Follow up with primary care provider in 3 days. Return to the Emergency Room if current symptoms worsen or if new symptoms develop. The documentation as recorded by the Darryl ashton Tiffany accurately reflects the service I personally performed and the decisions made by Iris valenzuela Emmanuel.
[2017-09-11 21:10] VITALS: BP 122/90
== END 2017-09-11 21:09 | disposition home or self-care (01) ==
LOC: ED 19:11
DX: G89.29 Other chronic pain (principal); Z76.5 Malingerer [conscious simulation]; F17.210 Nicotine dependence, cigarettes, uncomplicated; Z88.0 Allergy status to penicillin
CPT/HCPCS: 99282; A9270-GY

== ENCOUNTER → 2018-07-02 11:36 | Emergency (ER) | payer MEDICARE, MEDICAID ==
[~2018-07-02 11:36] MED LIST: traMADol TAB* 50 MG PO ONE
[2018-07-02 13:14] VITALS: BP 147/87
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
== END | disposition home or self-care (01) ==
LOC: ED 11:36
DX: M54.9 Dorsalgia, unspecified (principal); G89.29 Other chronic pain; F17.210 Nicotine dependence, cigarettes, uncomplicated; I10 Essential (primary) hypertension; F31.9 Bipolar disorder, unspecified; F20.9 Schizophrenia, unspecified
CPT/HCPCS: 99282; A9270-GY

== ENCOUNTER 2019-04-09 01:38 | Emergency (ER) | payer MEDICARE, MEDICAID ==
[2019-04-09] MEDS ORDERED: traMADol TAB* 50 MG PO ONE (05:47)
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
[2019-04-09 06:23] VITALS: BP 0/0
== END 2019-04-09 06:00 | disposition home or self-care (01) ==
LOC: ED 01:38
DX: G89.29 Other chronic pain (principal); E07.9 Disorder of thyroid, unspecified; F11.20 Opioid dependence, uncomplicated; I10 Essential (primary) hypertension; J44.9 Chronic obstructive pulmonary disease, unspecified; F17.210 Nicotine dependence, cigarettes, uncomplicated; Z88.0 Allergy status to penicillin
CPT/HCPCS: 99282; A9270-GY

== ENCOUNTER 2019-05-05 18:46 | Emergency (ER) | payer MEDICARE, MEDICAID ==
--- NOTE | 2019-05-05 20:07 | ED ---
Psychiatric Complaint - HPI Summary HPI Summary: This pt is a 68 Y/O F presenting to [facility] with a CC of merritt to her feet due to a heating element on her floor. She states that her housing apartment was a part of the [employer] in a test for reginonalism and stated that she was going to go find out what the government said about the whole activity. She stated that she has no coughs, fevers, CP, abdominal pain, N/V, mood, mental health. She stated that she is going to be writing letters to her contact in the government to find out what she needs to know. She stated that she has been writing reports to multiple contacts and stated that she has credentials in places that she will go and get. She stated that she will go and get the police and state police and bring them here to talk to the hospital. - History Of Current Complaint Chief Complaint: EDPsychosocial Time Seen by Provider: 05/05/19 19:45 Hx Obtained From: Patient Hx From Patient Unobtainable Due To: Other - Pt was uncooperative during her innitial examination ?: No Character: Fearful Aggravating Factor(s): Other - Pt stated that she has electrical merritt to her feet and stated that the government was trying a test at her appartment for "Regionalism" Alleviating Factor(s): Nothing Associated Signs And Symptoms: Positive: Paranoid Behavior Related History: Positive For: Prior Psychiatric Issues - Allergies/Home Medications Allergies/Adverse Reactions: Allergies Allergy/AdvReac Type Severity Reaction Status Date / Time blue dye Allergy Anaphylatic Verified 05/05/19 18:55 Shock Penicillins Allergy Hallucinati Verified 05/05/19 18:55 ons red dye Allergy Anaphylatic Verified 05/05/19 18:55 Shock chlorine Allergy Vomiting Uncoded 04/09/19 02:03 PMH/Surg Hx/FS Hx/Imm Hx Previously Healthy: Yes Endocrine/Hematology History: Reports: Hx Thyroid Disease Denies: Hx Anticoagulant Therapy, Hx Blood Disorders, Hx Blood Transfusions, Hx Bone Marrow Disease, Hx Diabetes, Hx Sickle Cell Disease, Hx Unexplained Bleeding Cardiovascular History: Reports: Hx Hypertension Denies: Hx Pacemaker/ICD Respiratory History: Reports: Hx Chronic Obstructive Pulmonary Disease (COPD) Denies: Hx Asthma History: Denies: Hx Renal Disease Musculoskeletal History: Reports: Hx Back Problems Denies: Hx Osteoporosis Sensory History: Reports: Hx Contacts or Glasses Opthamlomology History: Reports: Hx Contacts or Glasses Neurological History: Reports: Hx Migraine Denies: Hx Dementia, Hx Developmental Delay, Hx Headaches, Hx Seizures, Hx Spinal Cord Injury, Hx Transient Ischemic Attacks (TIA), Other Neuro Impairments /Disorders Psychiatric History: Reports: Hx Inpatient Treatment, Hx Community Mental Health Tx, Hx Schizophrenia, Hx Bipolar Disorder, Hx Substance Abuse, Other Psychiatric Issues/Disorders - schizoaffective d/o Denies: Hx Anxiety, Hx Attention Deficit Hyperactivity Disorder, Hx Eating Disorder, Hx Depression, Hx Panic Disorder, Hx Post Traumatic Stress Disorder, Hx of Violent Episodes Against Others - Surgical History Surgery Procedure, Year, and Place: hysterectomy. TRIPLE HERNIA. DEVIATED SEPTUM Infectious Disease History: Yes Infectious Disease History: Reports: Hx Hepatitis - Hep B&C Denies: Hx Clostridium Difficile, Hx Human Immunodeficiency Virus (HIV), Hx Shingles, Hx Tuberculosis, Traveled Outside the [place] in Last 30 Days - Family History Known Family History: Positive: Other - neg: mental health illnesses, Non- Contributory - Social History Alcohol Use: Occasionally Alcohol Amount: "once or twice a month" Hx Substance Use: Yes Substance Use Type: Reports: None Hx Tobacco Use: Yes Smoking Status (MU): Heavy Every Day Tobacco Smoker Type: Cigarettes Have You Smoked in the Last Year: Yes Review of Systems - ROS Summary Review of Systems Summary: A COMPLETE ROS IS UNOBTAINABLE DUE TO THE PT'S BEING EXTREMELY UNCOOPERATIVE. Positive: Other - Pt complains of merritt to her feet. Positive: Other - Paranoid All Other Systems Reviewed And Are Negative: No Physical Exam - Summary Physical Exam Summary: Appearance: Well appearing, no pain distress Skin: warm, dry, reflects adequate perfusion Head/face: normal Eyes: EOMI, DEBI ENT: normal Neck: supple, non-tender Respiratory: CTA, breath sounds present Cardiovascular: RRR, pulses symmetrical Abdomen: non-tender, soft Musculoskeletal: normal, strength/ROM intact callus/rash over the feet Neuro: normal, sensory motor intact, A&Ox3 Psych: pt is paranoid and delusional Triage Information Reviewed: Yes Vital Signs On Initial Exam: Initial Vitals Temp Pulse Resp BP Pulse Ox 98.6 F 104 16 152/129 97 05/05/19 18:47 05/05/19 18:47 05/05/19 18:47 05/05/19 18:47 05/05/19 18:47 Vital Signs Reviewed: Yes Diagnostics - Vital Signs Vital Signs Temp Pulse Resp BP Pulse Ox 05/05/19 18:47 98.6 F 104 16 152/129 97 - Laboratory Lab Statement: Any lab studies that have been ordered have been reviewed, and results considered in the medical decision making process. Course/Dx - Course Course Of Treatment: This pt is a 68 Y/O F presenting to [facility] with a CC of merritt to her feet due to a heating element on her floor. She states that her housing apartment was a part of the [employer] in a test for reginonalism and stated that she was going to go find out what the government said about the whole activity.. Her PE found her to be paranoid and delusional. MHE was denied by the pt and she will be discharged home with a Dx of a Hx of schizophrenia and calluses to her feet. - Differential Dx/Clinical Impression Differential Diagnosis/HQI/PQRI: Positive: Schizophrenia - rash feet Provider Diagnosis: History of schizophrenia, Callus of foot Discharge - Sign-Out/Discharge Documenting (check all that apply): Patient Departure - discharge Patient Received Moderate/Deep Sedation with Procedure: No - Discharge Plan Condition: Stable Disposition: HOME Prescriptions: Clotrimazole/Betamethasone* [Lotrisone Cream*] 1 applic TOPICAL BID #2 tube Patient Education Materials: Schizophrenia (ED) Referrals: Renuka Esquivel MD [Primary Care Provider] - 2 Days Additional Instructions: PLEASE RETURN TO THE EMERGENCY DEPARTMENT FOR ANY NEW OR WORSENING SYMPTOMS. PLEASE FOLLOW UP WITH YOU PRIMARY CARE PROVIDER IN 1-3 DAYS. Please take the medications as directed. - Billing Disposition and Condition Condition: STABLE Disposition: Home - Attestation Statements Document Initiated by Elvin: Yes Documenting Scribe: Juan Jackson Provider For Whom Elvin is Documenting (Include Credential): Fito Simmons MD Scribe Attestation: Juan Grace scribed for Fito Simmons MD on 05/05/19 at 2026. Scribe Documentation Reviewed: Yes Provider Attestation: The documentation as recorded by the Juan ashton accurately reflects the service I personally performed and the decisions made by , Fito Simmons MD Status of Scribe Document: Viewed
[2019-05-05 20:22] VITALS: BP 0/0
== END 2019-05-05 20:20 | disposition home or self-care (01) ==
LOC: ED 18:46
DX: F20.9 Schizophrenia, unspecified (principal); L84 Corns and callosities; I10 Essential (primary) hypertension; J44.9 Chronic obstructive pulmonary disease, unspecified; Z88.0 Allergy status to penicillin; F17.210 Nicotine dependence, cigarettes, uncomplicated
CPT/HCPCS: 99282

== ENCOUNTER 2019-07-02 16:34 | Emergency (ER) | payer MEDICARE, MEDICAID ==
[2019-07-02] MEDS ORDERED: Ketorolac INJ* 30 MG/ML 1 ML VIAL IM ONE (18:16)
--- NOTE | 2019-07-02 18:17 | ED ---
Upper Extremity Pain - HPI Summary HPI Summary: Patient complains of right shoulder pain, stating she thought it "popped out" while she was cleaning house today. Patient also states she ran out of her prescription tramadol, repeatedly asking for pain medication. Denies specific traumatic event that caused pain. Also denies fever, cough, sore throat, CP, SOB, N/V/V abdominal pain, change in urine, change in BM. Patient has history of chronic right shoulder pain status post fall 20 years ago. - History of Current Complaint Chief Complaint: EDPrescriptionNeeded Stated Complaint: LEFT SHOULDER PAIN Time Seen by Provider: 07/02/19 17:46 Hx Obtained From: Patient Mechanism Of Injury: Unknown Onset/Duration: Started Hours Ago Timing: Constant Severity Initially: Severe Severity Currently: Severe Pain Location: Shoulder Character: Dull, Aching, Throbbing Aggravating Factor(s): Movement, Lifting, Abduction Alleviating Factor(s): Nothing Associated Signs & Symptoms: Positive: Negative - Allergies/Home Medications Allergies/Adverse Reactions: Allergies Allergy/AdvReac Type Severity Reaction Status Date / Time blue dye Allergy Anaphylatic Verified 05/05/19 18:55 Shock Penicillins Allergy Hallucinati Verified 05/05/19 18:55 ons red dye Allergy Anaphylatic Verified 05/05/19 18:55 Shock chlorine Allergy Vomiting Uncoded 04/09/19 02:03 PMH/Surg Hx/FS Hx/Imm Hx Endocrine/Hematology History: Reports: Hx Thyroid Disease Denies: Hx Anticoagulant Therapy, Hx Blood Disorders, Hx Blood Transfusions, Hx Bone Marrow Disease, Hx Diabetes, Hx Sickle Cell Disease, Hx Unexplained Bleeding Cardiovascular History: Reports: Hx Hypertension Denies: Hx Pacemaker/ICD Respiratory History: Reports: Hx Chronic Obstructive Pulmonary Disease (COPD) Denies: Hx Asthma History: Denies: Hx Renal Disease Musculoskeletal History: Reports: Hx Back Problems Denies: Hx Osteoporosis Sensory History: Reports: Hx Contacts or Glasses Opthamlomology History: Reports: Hx Contacts or Glasses Neurological History: Reports: Hx Migraine Denies: Hx Dementia, Hx Developmental Delay, Hx Headaches, Hx Seizures, Hx Spinal Cord Injury, Hx Transient Ischemic Attacks (TIA), Other Neuro Impairments /Disorders Psychiatric History: Reports: Hx Inpatient Treatment, Hx Community Mental Health Tx, Hx Schizophrenia, Hx Bipolar Disorder, Hx Substance Abuse, Other Psychiatric Issues/Disorders - schizoaffective d/o Denies: Hx Anxiety, Hx Attention Deficit Hyperactivity Disorder, Hx Eating Disorder, Hx Depression, Hx Panic Disorder, Hx Post Traumatic Stress Disorder, Hx of Violent Episodes Against Others - Surgical History Surgery Procedure, Year, and Place: hysterectomy. TRIPLE HERNIA. DEVIATED SEPTUM Infectious Disease History: No Infectious Disease History: Reports: Hx Hepatitis - Hep B&C Denies: Hx Clostridium Difficile, Hx Human Immunodeficiency Virus (HIV), Hx Shingles, Hx Tuberculosis, Traveled Outside the [place] in Last 30 Days - Family History Known Family History: Positive: Other - neg: mental health illnesses, Non- Contributory - Social History Alcohol Use: Occasionally Alcohol Amount: "once or twice a month" Hx Substance Use: Yes Substance Use Type: Reports: None Hx Tobacco Use: Yes Smoking Status (MU): Heavy Every Day Tobacco Smoker Type: Cigarettes Have You Smoked in the Last Year: Yes Review of Systems Constitutional: Negative Eyes: Negative ENT: Negative Cardiovascular: Negative Respiratory: Negative Gastrointestinal: Negative Genitourinary: Negative Musculoskeletal: Other Skin: Negative Neurological: Negative Psychological: Normal All Other Systems Reviewed And Are Negative: Yes Physical Exam Triage Information Reviewed: Yes Vital Signs On Initial Exam: Initial Vitals Temp Pulse Resp BP Pulse Ox 97.7 F 62 16 162/99 99 07/02/19 16:39 07/02/19 16:39 07/02/19 16:39 07/02/19 16:39 07/02/19 16:39 Vital Signs Reviewed: Yes Appearance: Positive: Well-Appearing Skin: Positive: Warm Head/Face: Positive: Normal Head/Face Inspection Eyes: Positive: Normal Neck: Positive: Supple Respiratory/Lung Sounds: Positive: Clear to Auscultation Cardiovascular: Positive: Normal Abdomen Description: Positive: Nontender Musculoskeletal: Positive: Normal Neurological: Positive: Normal Psychiatric: Positive: Normal AVPU Assessment: Alert - [place] Coma Scale Best Eye Response: 4 - Spontaneous Best Motor Response: 6 - Obeys Commands Best Verbal Response: 5 - Oriented Coma Scale Total: 15 Procedures - Sedation Patient Received Moderate/Deep Sedation with Procedure: No Diagnostics - Vital Signs Vital Signs Temp Pulse Resp BP Pulse Ox 07/02/19 18:05 90 98 07/02/19 16:46 78 162/99 97 07/02/19 16:43 75 99 07/02/19 16:39 97.7 F 62 16 162/99 99 - Laboratory Lab Statement: Any lab studies that have been ordered have been reviewed, and results considered in the medical decision making process. Course/Dx - Course Course Of Treatment: Patient complains of right shoulder pain, stating she thought it "popped out" while she was cleaning house today. Patient also states she ran out of her prescription tramadol, repeatedly asking for pain medication. Denies specific traumatic event that caused pain. Also denies fever, cough, sore throat, CP, SOB, N/V/V abdominal pain, change in urine, change in BM. Patient has history of chronic right shoulder pain status post fall 20 years ago. Patient given Toradol IM and lidocaine patch. Once patient realized she was not getting opiate medication, patient kept insisting on leaving. She realizes medicated Was going to take a while, she accepted Toradol and lidocaine patch treatment. - Diagnoses Provider Diagnoses: Right shoulder pain Discharge ED - Sign-Out/Discharge Documenting (check all that apply): Patient Departure - Discharge Plan Condition: Stable Disposition: HOME Patient Education Materials: Shoulder Pain (ED) Referrals: Renuka Esquivel MD [Primary Care Provider] - Additional Instructions: Follow-up with pain management for pain control. - Billing Disposition and Condition Condition: STABLE Disposition: Home
[2019-07-02] MEDS ORDERED: Lidocaine PATCH 5%* 1 PATCH TRANSDERM SCH (19:00)
[2019-07-02 19:01] VITALS: BP 150/90
[2019-07-02] MEDS ORDERED: Lidocaine Patch REMOVE* 1 NOTE MISC SCH (21:00)
== END 2019-07-02 18:58 | disposition home or self-care (01) ==
LOC: ED 16:34
DX: M25.511 Pain in right shoulder (principal); I10 Essential (primary) hypertension; Z88.0 Allergy status to penicillin; Z91.048 Other nonmedicinal substance allergy status; J44.9 Chronic obstructive pulmonary disease, unspecified; F17.210 Nicotine dependence, cigarettes, uncomplicated
CPT/HCPCS: 96372; 99282; A9270-GY; J1885

== ENCOUNTER 2019-07-30 05:27 | Emergency (ER) | payer MEDICARE, MEDICAID ==
--- OUTSIDE RECORDS SUMMARY | 2019-07-30 06:03 | XMS REPORT | Continuity of Care Document ---
:1950 External Reference #:[id number] Author Name DORINDA Arce Address [address] [place] [address] Problems Active Problems Provider Date Tobacco dependence syndrome Onset: 04/05/2019 Inactive Problems Foot pain Onset: 04/28/2019 Inactive: 04/28/2019 Backache Onset: 04/28/2019 Inactive: 04/28/2019 Problem situation relating to social and personal history Onset: 04/28/2019 Inactive: 04/28/2019 Chronic pain Onset: 04/05/2019 Inactive: 04/05/2019 Hypertensive disorder Onset: 04/05/2019 Inactive: 04/05/2019 Stress Onset: 03/02/2019 Inactive: 03/02/2019 Housing problem Onset: 03/02/2019 Inactive: 03/02/2019 Pain in both feet Onset: 02/10/2019 Inactive: 02/10/2019 Bilateral acquired absence of ovary Onset: 01/30/2019 Inactive: 01/30/2019 Delusions Onset: 01/06/2019 Inactive: 01/06/2019 Disorder of endocrine system Onset: 01/06/2019 Inactive: 01/06/2019 Seasonal allergy Onset: 01/06/2019 Inactive: 01/06/2019 Social History Type Date Description Comments Sex Unknown Allergies, Adverse Reactions, Alerts Active Allergies Reaction Severity Comments Date Chlorine unknown 05/26/2019 Contrast Dyes "violent abhorrence" 05/26/2019 Dyes unknown 05/26/2019 Dyes In Rugs, Paints, unknown 05/26/2019 Plastics Penicillin "hallucinations, big shock" 05/26/2019 anaphylaxi Medications Active Medications SIG Qnty Indications Ordering Date Provider Tramadol HCL 1-2 tabs 4 times a 210tabs M54.5 DORINDA Arce 07/04/2019 50mg day by mouth as Tablets needed Hpa Lanolin apply as needed 40gm Mayuri 06/30/2019 Ointment [place], DO Tramadol HCL Take One To Two 210tabs Alex Pleitez MD 05/08/2019 50mg Tablets By Mouth Tablets Four Times A Day For 30 Days Maximum Daily Dose = Seven Tablets Levothyroxine Sodium Take One-Half 15tabs Renuka Sierra, 04/17/2019 Tablet Once Daily 75mcg Tablets Losartan Potassium 1 daily Oral 30tabs Unknown 04/05/2019 50mg Tablets Estradiol 1 daily Oral 30tabs Unknown 02/18/2019 2mg Tablets Lidocaine HCL 1 Samaria daily prn 1units Unknown 02/10/2019 3% External Cream Cetirizine HCL 1-2 daily prn 60tabs Unknown 01/06/2019 5mg Oral Tablets Androderm 1 daily 30units Unknown 12/05/2018 2mg/24HR Transdermal Patches 24HR Tab-A-Aziza 1 daily Oral 30tabs Unknown 12/05/2018 Tablets Prometrium 1 twice daily 60caps Unknown 12/05/2018 100mg Oral Capsules KP Melatonin Unknown History Medications Tramadol HCL 1-2 4 times a day 210tabs Unknown 05/08/2019 - 05/08/2019 50mg Tablets Oral; MDD 7 Icd 10: M54.56 Chronic low back pain Tramadol HCL 1-2 4 times a day 210tabs Unknown 04/05/2019 - 05/05/2019 50mg Tablets Oral; MDD 7 Icd 10: M54.56 Chronic low back pain Tramadol HCL 1-2 4 times a day 210tabs Unknown 04/05/2019 - 04/05/2019 50mg Tablets Oral Tramadol HCL 1-2 4 times a day 210tabs Unknown 03/13/2019 - 04/05/2019 50mg Tablets Oral; MDD 7 Icd 10 M54.56 low back pain Tramadol HCL 1-2 4 times a day 50tabs Unknown 03/02/2019 - 03/09/2019 50mg Tablets Oral; MDD 7 Icd 10 M54.56 low back pain Covaryx 1 daily Oral 30tabs Unknown 01/30/2019 - 03/01/2019 1.25-2.5mg Tablets Calcium + D3 2 once each day 60tabs Unknown 01/06/2019 - 02/05/2019 [id number] Oral Tablets Cetirizine HCL 1-2 daily prn Oral 60tabs Unknown 01/06/2019 - 01/06/2019 5mg Tablets Cetirizine HCL 1-2 daily prn Oral 60tabs Unknown 01/06/2019 - 02/05/2019 5mg Tablets Tramadol HCL 1-2 4 times a day 120tabs Unknown 01/04/2019 - 01/04/2019 50mg Tablets Oral; MDD 7 Icd 10 code: back pain M54.56 Tramadol HCL 1-2 4 times a day 210tabs Unknown 01/04/2019 - 01/04/2019 50mg Tablets Oral; MDD 7 Icd 10 M54.56 low back pain Tramadol HCL 1-2 4 times a day 210tabs Unknown 01/04/2019 - 01/04/2019 50mg Tablets Oral; MDD 7 Icd 10 M54.56 low back pain Tramadol HCL 1-2 4 times a day 210tabs Unknown 01/04/2019 - 01/04/2019 50mg Tablets Oral; MDD 7 Icd 10 M54.56 low back pain Tramadol HCL 1-2 4 times a day 210tabs Unknown 01/04/2019 - 03/01/2019 50mg Tablets Oral; MDD 7 Icd 10 M54.56 low back pain Immunizations Description No Information Available Vital Signs Date Vital Result Comment 07/04/2019 11:32am BP Systolic 128 mmHg BP Diastolic 70 mmHg Heart Rate 74 /min Body Temperature 98.1 F O2 % BldC Oximetry 97 % 04/28/2019 2:40pm BP Systolic 118 mmHg Weight 184.00 lb Heart Rate 79 /min Body Temperature 97.9 F O2 % BldC Oximetry 95 % Results Description No Information Available Procedures Description No Information Available Medical Devices Description No Information Available Encounters Type Date Location Provider Dx Diagnosis Office Visit 07/04/2019 11:30a [facility] DORINDA Arce M54.5 Low back pain Assessments Date Code Description Provider 07/04/2019 M54.5 Low back pain DORINDA Arce Plan of Treatment 07/04/2019 - WILFREDO ArcePM54.5 Low back painNew Medication:Tramadol HCL 50 mg - 1-2 tabs 4 times a day by mouth as neededComments:Pt. known to the practice and known to have delusions of NANY watching her and other delusions. No SI or HI. [place] Has case workerMabel Menjivar. Reviewed importance of keeping her medications safe, locking her door etc. States the NANY can get to her no matter what she does. Will refill her tramadol today for 1 month supply. Disc. importance of other modalities for pain control. Disc. with her plan to reduce tramadol use per her last PN with Dr. Garcia. States understanding. Follow up in 1 month, sooner as needed. Functional Status Description No Information Available Mental Status Description No Information Available Referrals Description No Information Available
--- OUTSIDE RECORDS SUMMARY | 2019-07-30 06:03 | XMS REPORT | Continuity of Care Document ---
:1950 External Reference #:[id number] Author Name Renuka Esquivel MD Address [address] [place] [address] Problems Active Problems Provider Date Tobacco dependence [...] absence of ovary Onset: 01/30/2019 Inactive: 01/30/2019 Social History Type Date Description Comments Sex [...] apply as needed 40gm Mayuri 06/30/2019 Ointment DO Gabby Tramadol HCL Take One To Two 210tabs Alex Pleitez MD 05/08/2019 50mg Tablets By Mouth Tablets Four Times A Day For 30 Days Maximum Daily Dose = Seven Tablets Levothyroxine Sodium Take One-Half 15tabs Renuka Esquivel 04/17/2019 Tablet Once Daily 75mcg Tablets Losartan Potassium 1 daily Oral 30tabs Unknown 04/05/2019 50mg Tablets Estradiol Take One Tablet By 30tabs Renuka Pfeifferjordy, 02/18/2019 2mg Tablets Mouth Every Day Lidocaine HCL 1 Samaria daily prn 1units Unknown 02/10/2019 3% External Cream Cetirizine HCL 1-2 daily prn 60tabs Unknown 01/06/2019 5mg Oral Tablets Prometrium 1 twice daily 60caps Unknown 12/05/2018 100mg Oral Capsules Tab-A-Aziza 1 daily Oral 30tabs Unknown 12/05/2018 Tablets Androderm 1 daily 30units Unknown 12/05/2018 2mg/24HR Transdermal Patches 24HR KP Melatonin Unknown History Medications Tramadol HCL [...] 30tabs Unknown 01/30/2019 - 03/01/2019 1.25-2.5mg Tablets Immunizations Description No Information Available Vital Signs Date Vital Result Comment 07/28/2019 2:59pm BP Systolic 138 mmHg BP Diastolic 78 mmHg Weight 181.00 lb Heart Rate 115 /min Body Temperature 98.3 F O2 % BldC Oximetry 99 % 07/04/2019 11:32am BP Systolic 128 mmHg BP Diastolic 70 mmHg Heart Rate 74 /min Body Temperature 98.1 F O2 % BldC Oximetry 97 % Results Description No Information Available Procedures Description No Information Available Medical Devices Description No Information Available Encounters Type Date Location Provider Dx Diagnosis Office Visit 07/28/2019 3:00p [facility] Renuka Esquivel MD G89.29 Other chronic pain F22 Delusional disorders Office Visit 07/04/2019 11:30a [facility] DORINDA Arce M54.5 Low back pain Assessments Date Code Description Provider 07/28/2019 G89.29 Other chronic pain Renuka Esquivel MD 07/28/2019 F22 Delusional disorders Renuka Esquivel MD 07/04/2019 M54.5 Low back pain DORINDA Arce Plan of Treatment No Information Available Functional Status Description No Information Available Mental Status Description No Information Available Referrals Description No Information Available
[2019-07-30] MEDS ORDERED: traMADol TAB* 50 MG PO ONE (06:04)
[2019-07-30 06:49] VITALS: BP 0/0
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
== END 2019-07-30 06:46 | disposition home or self-care (01) ==
LOC: ED 05:27
DX: M54.9 Dorsalgia, unspecified (principal); G89.29 Other chronic pain; E07.9 Disorder of thyroid, unspecified; I10 Essential (primary) hypertension; J44.9 Chronic obstructive pulmonary disease, unspecified; F17.210 Nicotine dependence, cigarettes, uncomplicated; Z90.710 Acquired absence of both cervix and uterus; Z79.899 Other long term (current) drug therapy; Z88.0 Allergy status to penicillin
CPT/HCPCS: 99282; A9270-GY

== ENCOUNTER 2019-08-22 20:04 | Emergency (ER) | payer MEDICARE, MEDICAID ==
[2019-08-22] MEDS ORDERED: traMADol TAB* 50 MG PO ONE (20:46)
--- NOTE | 2019-08-22 20:47 | ED ---
Back Pain - HPI Summary HPI Summary: Patient complains of right shoulder, right lower back and right hip pain. History of chronic pain. Denies new trauma. Patient states he ran out of tramadol prescription for days ago. States she has appointment with PCP tomorrow to renew prescription. Patient here for pain control. Denies any other symptoms, pain or injury. - History of Current Complaint Chief Complaint: EDBackInjuryPain Stated Complaint: LUMBAR/SHOULDER/HIP PAIN PER EMS Time Seen by Provider: 08/22/19 20:37 Hx Obtained From: Patient Onset/Duration: Gradual Onset, Lasting Days Onset/Duration: Started Days Ago Timing: Constant Severity Initially: Severe Severity Currently: Severe Pain Intensity: 9 Pain Scale Used: 0-10 Numeric Character: Throbbing Aggravating Symptom(s): Movement Alleviating Symptom(s): Rest Associated Signs And Symptoms: Positive: Negative - Allergies/Home Medications Allergies/Adverse Reactions: Allergies Allergy/AdvReac Type Severity Reaction Status Date / Time blue dye Allergy Anaphylatic Verified 05/05/19 18:55 Shock Penicillins Allergy Hallucinati Verified 05/05/19 18:55 ons red dye Allergy Anaphylatic Verified 05/05/19 18:55 Shock chlorine Allergy Vomiting Uncoded 04/09/19 02:03 PMH/Surg Hx/FS Hx/Imm Hx Endocrine/Hematology History: Reports: Hx Thyroid Disease Denies: Hx Anticoagulant Therapy, Hx Blood Disorders, Hx Blood Transfusions, Hx Bone Marrow Disease, Hx Diabetes, Hx Sickle Cell Disease, Hx Unexplained Bleeding Cardiovascular History: Reports: Hx Hypertension Denies: Hx Pacemaker/ICD Respiratory History: Reports: Hx Chronic Obstructive Pulmonary Disease (COPD) Denies: Hx Asthma History: Denies: Hx Renal Disease Musculoskeletal History: Reports: Hx Back Problems Denies: Hx Osteoporosis Sensory History: Reports: Hx Contacts or Glasses Opthamlomology History: Reports: Hx Contacts or Glasses Neurological History: Reports: Hx Migraine Denies: Hx Dementia, Hx Developmental Delay, Hx Headaches, Hx Seizures, Hx Spinal Cord Injury, Hx Transient Ischemic Attacks (TIA), Other Neuro Impairments /Disorders Psychiatric History: Reports: Hx Inpatient Treatment, Hx Community Mental Health Tx, Hx Schizophrenia, Hx Bipolar Disorder, Hx Substance Abuse, Other Psychiatric Issues/Disorders - schizoaffective d/o Denies: Hx Anxiety, Hx Attention Deficit Hyperactivity Disorder, Hx Eating Disorder, Hx Depression, Hx Panic Disorder, Hx Post Traumatic Stress Disorder, Hx of Violent Episodes Against Others - Surgical History Surgery Procedure, Year, and Place: hysterectomy. TRIPLE HERNIA. DEVIATED SEPTUM Infectious Disease History: No Infectious Disease History: Reports: Hx Hepatitis - Hep B&C Denies: Hx Clostridium Difficile, Hx Human Immunodeficiency Virus (HIV), Hx Shingles, Hx Tuberculosis, Traveled Outside the [place] in Last 30 Days - Family History Known Family History: Positive: Other - neg: mental health illnesses, Non- Contributory - Social History Alcohol Use: Occasionally Alcohol Amount: "not much" Hx Substance Use: Yes Substance Use Type: Reports: None Hx Tobacco Use: Yes Smoking Status (MU): Heavy Every Day Tobacco Smoker Type: Cigarettes Have You Smoked in the Last Year: Yes Review of Systems Constitutional: Negative Eyes: Negative ENT: Negative Cardiovascular: Negative Respiratory: Negative Gastrointestinal: Negative Genitourinary: Negative Musculoskeletal: Other Skin: Negative Neurological: Negative Psychological: Normal All Other Systems Reviewed And Are Negative: Yes Physical Exam - Summary Physical Exam Summary: No ecchymosis, erythema, deformity, swelling or to right shoulder, back, right hip. Full range of motion of right lower extremity and right upper extremity. Triage Information Reviewed: Yes Vital Signs On Initial Exam: Initial Vitals Temp Pulse Resp BP Pulse Ox 97.1 F 97 16 141/109 97 08/22/19 20:13 08/22/19 20:13 08/22/19 20:13 08/22/19 20:13 08/22/19 20:13 Vital Signs Reviewed: Yes Appearance: Positive: Well-Appearing Skin: Positive: Warm Head/Face: Positive: Normal Head/Face Inspection Eyes: Positive: Normal Neck: Positive: Supple Respiratory/Lung Sounds: Positive: Clear to Auscultation Cardiovascular: Positive: Normal Abdomen Description: Positive: Nontender Musculoskeletal: Positive: Normal Neurological: Positive: Normal Psychiatric: Positive: Normal AVPU Assessment: Alert - Maxwell Coma Scale Best Eye Response: 4 - Spontaneous Best Motor Response: 6 - Obeys Commands Best Verbal Response: 5 - Oriented Coma Scale Total: 15 Procedures - Sedation Patient Received Moderate/Deep Sedation with Procedure: No Diagnostics - Vital Signs Vital Signs Temp Pulse Resp BP Pulse Ox 08/22/19 20:13 97.1 F 97 16 141/109 97 - Laboratory Lab Statement: Any lab studies that have been ordered have been reviewed, and results considered in the medical decision making process. Back Pain Course/Dx - Course Course Of Treatment: Patient complains of right shoulder, right lower back and right hip pain. History of chronic pain. Patient states he ran out of tramadol prescription for days ago. States she has appointment with PCP tomorrow to renew prescription. Patient here for pain control. Denies any other symptoms, pain or injury. Vital signs within normal limits. Patient keeps asking for pain medication, moves right upper extremity and right lower extremity freely without any indication of pain. Advised to follow-up with primary care for pain control. - Diagnoses Provider Diagnoses: Chronic pain Discharge ED - Sign-Out/Discharge Documenting (check all that apply): Patient Departure - Discharge Plan Condition: Stable Disposition: HOME Patient Education Materials: Chronic Pain (ED) Referrals: Renuka Esquivel MD [Primary Care Provider] - Additional Instructions: Follow-up with your primary care doctor for further evaluation of prescriptions for chronic pain. - Billing Disposition and Condition Condition: STABLE Disposition: Home
[2019-08-22 21:05] VITALS: BP 145/108
== END 2019-08-22 20:56 | disposition home or self-care (01) ==
LOC: ED 20:04
DX: R07.9 Chest pain, unspecified (principal); M25.511 Pain in right shoulder; Z88.0 Allergy status to penicillin; Z79.899 Other long term (current) drug therapy; E03.9 Hypothyroidism, unspecified; I10 Essential (primary) hypertension; J44.9 Chronic obstructive pulmonary disease, unspecified; F17.210 Nicotine dependence, cigarettes, uncomplicated
CPT/HCPCS: 99282; A9270-GY

== ENCOUNTER 2019-09-28 09:56 | Emergency (ER) | payer MEDICARE, MEDICAID ==
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
--- OUTSIDE RECORDS SUMMARY | 2019-09-28 10:05 | XMS REPORT | Continuity of Care Document ---
:1950 External Reference #:[id number] Author Name Renuka Esquivel MD Address [address] [place] [address] Problems Active Problems Provider Date Tobacco dependence syndrome Onset: 04/05/2019 Inactive Problems Foot pain Onset: 04/28/2019 Inactive: 04/28/2019 Backache Onset: 04/28/2019 Inactive: 04/28/2019 Problem situation relating to social and personal history Onset: 04/28/2019 Inactive: 04/28/2019 Chronic pain Onset: 04/05/2019 Inactive: 04/05/2019 Hypertensive disorder Onset: 04/05/2019 Inactive: 04/05/2019 Stress Onset: 03/02/2019 Inactive: 03/02/2019 Housing problem Onset: 03/02/2019 Inactive: 03/02/2019 Social History Type Date Description Comments Sex Unknown Allergies, Adverse Reactions, Alerts Active Allergies Reaction Severity Comments Date Chlorine unknown 05/26/2019 Contrast Dyes "violent abhorrence" 05/26/2019 Dyes unknown 05/26/2019 Dyes In Rugs, Paints, unknown 05/26/2019 Plastics Penicillin "hallucinations, big shock" 05/26/2019 anaphylaxi FD&C Red 40 [place] 08/23/2019 Blue Dyes (Parenteral) 08/23/2019 Medications Active Medications SIG Qnty Indications Ordering Date Provider Tramadol HCL 1-2 tabs 4 times a 180tabs M54.5 Renuka Pfeifferholt, 07/04/2019 50mg day by mouth as MD Tablets needed Hpa Lanolin apply as needed 40gm Mayuri 06/30/2019 Ointment DO Gabby Levothyroxine Sodium Take One-Half 15tabs Renuka Pfeifferholt, 04/17/2019 Tablet Once Daily 75mcg Tablets Losartan Potassium 1 daily Oral 30tabs Unknown 04/05/2019 50mg Tablets Estradiol Take One Tablet By 30tabs Renuka Pfeifferholrachelle, 02/18/2019 2mg Tablets Mouth Every Day Lidocaine [...] times a day 210tabs Unknown 05/08/2019 - 50mg Oral; MDD 7 Icd 05/08/2019 Tablets 10: M54.56 Chronic low back pain Tramadol HCL Take One To Two 210tabs Alex Pleitez MD 05/08/2019 - 50mg Tablets By Mouth 08/23/2019 Tablets Four Times A Day For 30 Days Maximum Daily Dose = Seven Tablets Tramadol HCL 1-2 4 times a day 210tabs Unknown 04/05/2019 - 50mg Oral 04/05/2019 Tablets Tramadol HCL 1-2 4 times a day 210tabs Unknown 04/05/2019 - 50mg Oral; MDD 7 Icd 05/05/2019 Tablets 10: M54.56 Chronic low back pain Tramadol HCL 1-2 4 times a day 210tabs Unknown 03/13/2019 - 50mg Oral; MDD 7 Icd 04/05/2019 Tablets 10 M54.56 low back pain Tramadol HCL 1-2 4 times a day 50tabs Unknown 03/02/2019 - 50mg Oral; MDD 7 Icd 03/09/2019 Tablets 10 M54.56 low back pain Immunizations Description No Information Available Vital Signs Date Vital Result Comment 08/23/2019 1:33pm BP Systolic 136 mmHg BP Diastolic 80 mmHg Heart Rate 81 /min Body Temperature 98.5 F O2 % BldC Oximetry 99 % 07/28/2019 2:59pm BP Systolic 138 mmHg BP Diastolic 78 mmHg Weight 181.00 lb Heart Rate 115 /min Body Temperature 98.3 F O2 % BldC Oximetry 99 % Results Description No Information Available Procedures Description No Information Available Medical Devices Description No Information Available Encounters Type Date Location Provider Dx Diagnosis Office Visit 08/23/2019 1:30p [facility] Renuka Esquivel MD G89.29 Other chronic pain F22 Delusional disorders Office Visit 07/28/2019 3:00p [facility] Renuka Esquivel MD G89.29 Other chronic pain F22 Delusional disorders Office Visit 07/04/2019 11:30a [facility] Nae Short, DIRECTOR OF COMMUNITY EDUCATION M54.5 Low back pain Assessments Date Code Description Provider 08/23/2019 [id number] Other chronic pain Renuka Esquivel MD 08/23/2019 F22 Delusional disorders Renuka Esquivel MD 07/28/2019 G89.29 Other chronic pain Renuka Esquivel MD 07/28/2019 F22 Delusional disorders Renuka Esquivel MD 07/04/2019 M54.5 Low back pain DORINDA Arce Plan of Treatment 08/23/2019 - Renuka Esquivel MDG89.29 Other chronic painF22 Delusional disordersAllComments:Discussed that for patient to continue with our practice, I would need her to not use profanity withstaff members, not continue requesting early refills for her medication and I would need her to establish with a psychiatrist to work on her delusional disorder. She state that she was not willing to do any of these and she would prefer to be discharged. Discharge letter given to patient at the office. We discussed that I would do appropriate refills and medical care for her for 30 days.Script sentfor tramadol - discussed that this was a 30 day script with enough to take 6 per day only and that this is the last tramadol script that I or my collegues would be providing for her. Functional Status Description No Information Available Mental Status Description No Information Available Referrals Description No Information Available
[2019-09-28 10:15] VITALS: BP 153/96
== END 2019-09-28 10:50 | disposition home or self-care (01) ==
LOC: UCEAST 09:56
DX: L03.032 Cellulitis of left toe (principal); I10 Essential (primary) hypertension; F17.210 Nicotine dependence, cigarettes, uncomplicated; F31.9 Bipolar disorder, unspecified; F20.9 Schizophrenia, unspecified; E03.9 Hypothyroidism, unspecified; Z88.0 Allergy status to penicillin; Z91.09 Other allergy status, other than to drugs and biological substances; Z91.041 Radiographic dye allergy status; Z79.899 Other long term (current) drug therapy
CPT/HCPCS: 99212; G0463

== ENCOUNTER 2019-10-21 11:08 | Emergency (ER) | payer MEDICARE, MEDICAID ==
--- OUTSIDE RECORDS SUMMARY | 2019-10-21 11:15 | XMS REPORT | Continuity of Care Document ---
:1950 External Reference #:[id number] Author Name Duane Dunbar MD Address [address] [place] [id number] Care Team Providers Name Role Phone Duane Dunbar MD - Family Medicine Care Team Information Nutrition Faculty Member [phone] Problems Description No Information Available Social History Type Date Description Comments Sex Unknown Tobacco Use Start: Unknown Light tobacco smoker (10 or fewer cigarettes/day) Smoking Status Reviewed: 10/17/19 Light tobacco smoker (10 or fewer cigarettes/day) ETOH Use Denies alcohol use Tobacco Use Start: Unknown Light tobacco smoker (10 or started in her 20's. fewer cigarettes/day) Allergies, Adverse Reactions, Alerts Active Allergies Reaction Severity Comments Date FD&C Red 40 [place] 10/17/2019 Blue Dyes (Parenteral) 10/17/2019 Penicillin 10/17/2019 Chlorine 10/17/2019 Seasonal 10/17/2019 Medications Active Medications SIG Qnty Indications Ordering Provider Date Tramadol HCL takes "as many as Unknown 50mg Tablets she can get" in a day, states she's taken 6-8 tablets in a day before. Cetirizine HCL Take One To Two Unknown 5mg Tablets Tablets By Mouth Every Day as Needed Estradiol Take One Tablet Unknown 2mg Tablets By Mouth Every Day Levothyroxine Sodium Take 1/2 Tablet Unknown 75mcg By Mouth Daily Tablets Losartan Potassium Take One Tablet Unknown 50mg By Mouth Every Tablets Day Clindamycin HCL Take One Capsule Unknown 300mg By Mouth Three Capsules Times A Day Immunizations Description No Information Available Vital Signs Date Vital Result Comment 10/17/2019 3:06pm BP Systolic 124 mmHg BP Diastolic 82 mmHg Body Temperature 97.0 F Heart Rate 76 /min Respiratory Rate 17 /min Height 66 inches 5'6" Weight 191.00 lb BMI (Body Mass Index) 30.8 kg/m2 BSA (Body Surface Area) 1.96 m2 Mclean body weight in kilograms 59 kg O2 % BldC Oximetry 96 % Results Description No Information Available Procedures Description No Information Available Medical Devices Description No Information Available Encounters Type Date Location Provider Dx Diagnosis Office Visit 10/17/2019 Family Medicine Duane Dunbar MD Z00.01 Encounter for 3:30p [place] [address] general adult medical exam w abnormal findings Z79.899 Other superintendent container terminal (current) drug therapy I10 Essential (primary) hypertension E03.9 Hypothyroidism, unspecified G89.4 Chronic pain syndrome 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, 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 Assessments Date Code Description Provider 10/17/2019 Z00.01 Encounter for general adult medical examination Duane Dunbar MD with abnormal findings 10/17/2019 Z79.899 Other superintendent container terminal (current) drug therapy Duane Dunbar MD 10/17/2019 I10 Essential (primary) hypertension Duane Dunbar MD 10/17/2019 E03.9 Hypothyroidism, unspecified Duane Dunbar MD 10/17/2019 G89.4 Chronic pain syndrome Duane Dunbar MD 10/17/2019 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
[2019-10-21 11:40] VITALS: BP 142/97
--- NOTE | 2019-10-21 12:17 | UC ---
General HPI - HPI Summary HPI Summary: patient is a followed by Dr. Esquivel for primary care. She ran out of tramadol which she uses prn for bilateral foot pain and would like a refill last fill was 08/23/2019 [facility] Reference #: [id number] - History of Current Complaint Chief Complaint: UCMedRefill Stated Complaint: MED REFILL Time Seen by Provider: 10/21/19 11:57 Hx Obtained From: Patient Onset/Duration: Gradual Onset Onset Severity: Moderate Current Severity: Moderate Pain Intensity: 6 - Allergy/Home Medications Allergies/Adverse Reactions: Allergies Allergy/AdvReac Type Severity Reaction Status Date / Time blue dye Allergy Anaphylatic Verified 10/21/19 11:42 Shock Penicillins Allergy Hallucinati Verified 10/21/19 11:42 ons red dye Allergy Anaphylatic Verified 10/21/19 11:42 Shock chlorine Allergy Vomiting Uncoded 10/21/19 11:42 contrast dye Allergy See Comment Uncoded 10/21/19 11:42 Home Medications: Home Medications Cetirizine* [ZyrTEC 10 MG TAB*] 5 mg PO DAILY 10/21/19 [History Confirmed ] Losartan TAB* [Cozaar TAB*] 25 mg PO DAILY 10/21/19 [History Confirmed 10/21/19] PMH/Surg Hx/FS Hx/Imm Hx Previously Healthy: Yes Endocrine History: Hypothyroidism Cardiovascular History: Hypertension Other History Of: Negative For: Anticoagulant Therapy - Surgical History Surgical History: Yes Surgery Procedure, Year, and Place: hysterectomy. TRIPLE HERNIA. DEVIATED SEPTUM - Family History Known Family History: Positive: Other - neg: mental health illnesses, Non- Contributory - Social History Occupation: Unemployed Lives: Assisted Living Alcohol Use: Occasionally Alcohol Amount: "not much" Substance Use Type: None Smoking Status (MU): Heavy Every Day Tobacco Smoker Type: Cigarettes Have You Smoked in the Last Year: Yes Household Exposure Type: Cigarettes Cessation Counseling: Patient Advised to Stop - Immunization History Most Recent Influenza Vaccination: unknown Most Recent Tetanus Shot: unknown Most Recent Pneumonia Vaccination: never Review of Systems All Other Systems Reviewed And Are Negative: Yes Constitutional: Positive: Negative Skin: Positive: Other - old merritt bilateral feet Respiratory: Positive: Negative Cardiovascular: Positive: Negative Musculoskeletal: Positive: Negative. Negative: Decreased ROM Neurological: Positive: Negative Psychological: Positive: Negative Is Patient Immunocompromised?: No Physical Exam Triage Information Reviewed: Yes Appearance: Well-Appearing, No Pain Distress, Well-Nourished Vital Signs: Initial Vital Signs Temp 98.1 F 10/21/19 11:28 Pulse 73 10/21/19 11:28 Resp 16 10/21/19 11:28 BP 142/97 10/21/19 11:28 Pulse Ox 100 10/21/19 11:28 Vital Signs Reviewed: Yes Respiratory Exam: Normal Cardiovascular Exam: Normal Neurological Exam: Normal Psychological: Positive: Other: - very verbal, reports long history problems of various types concerning apartment and "NANY" howevr easy to redirect to conversation and then gives normal responses Skin: Positive: Other - soles of bilateral feet are dry, she has applied a "natural cream" which turns the skin black Course/Dx - Differential Dx - Multi-Symptom Differential Diagnoses: Other - skin infection, acute pain, chronic pain - Diagnoses Provider Diagnosis: Medication refill Discharge ED - Sign-Out/Discharge Documenting (check all that apply): Patient Departure All imaging exams completed and their final reports reviewed: No Studies - Discharge Plan Condition: Good Disposition: HOME Prescriptions: traMADol TAB* [Ultram*] 50 mg PO Q6HR PRN #30 tab MDD 4 PRN Reason: Pain - Moderate Patient Education Materials: Medicine Refill (ED) Referrals: Renuka Esquivel MD [Primary Care Provider] - 2 Days (for recheck) Additional Instructions: Your tramadol has been sent to the pharmacy take it as prescribed and follow-up with doctor Sierra next week - Billing Disposition and Condition Condition: GOOD Disposition: Home - Attestation Statements Provider Attestation: This patient was not seen by me. I was available for consult. Chart reviewed. LILA
== END 2019-10-21 12:23 | disposition home or self-care (01) ==
LOC: UCEAST 11:08
DX: Z76.0 Encounter for issue of repeat prescription (principal); M79.672 Pain in left foot; M79.671 Pain in right foot; I10 Essential (primary) hypertension; F17.210 Nicotine dependence, cigarettes, uncomplicated; Z79.899 Other long term (current) drug therapy; Z91.09 Other allergy status, other than to drugs and biological substances; Z88.0 Allergy status to penicillin; Z91.041 Radiographic dye allergy status
CPT/HCPCS: 99212; G0463

== ENCOUNTER 2019-11-27 12:09 | Emergency (ER) | payer MEDICARE, MEDICAID ==
[2019-11-27 12:14] VITALS: BP 145/109
--- NOTE | 2019-11-28 05:31 | ED ---
Complex/Multi-Sys Presentation - HPI Summary HPI Summary: Patient chele 69yo with a complicated psych history presenting to the ED with request for medications. States she does not have a PCP in the area and needs a refill on her tramadol and other meds. When asked why she does not have a PCP , she began to discuss how her medications were being stolen. She states she has filed police reports but no signs of forced entry were identified. She states there are metal "beams" that people are able to get through the window and the "lasers they use,they can transport through [employer] and this is all directed by the [employer] and the president." She states there is a conspiracy against her. She is not able to tell provider why she does not see a PCP regularly, as she is very tangential. She denies SI/HI. Patient lives alone and states she does have a psych hx but this is separate. - History Of Current Complaint Chief Complaint: EDPrescriptionNeeded Time Seen by Provider: 11/27/19 12:40 Hx Obtained From: Patient Onset/Duration: Sudden Onset Timing: Constant Severity Currently: None Severity Initially: Mild Location: Negative - Allergies/Home Medications Allergies/Adverse Reactions: Allergies Allergy/AdvReac Type Severity Reaction Status Date / Time blue dye Allergy Anaphylatic Verified 11/27/19 12:14 Shock Penicillins Allergy Hallucinati Verified 11/27/19 12:14 ons red dye Allergy Anaphylatic Verified 11/27/19 12:14 Shock chlorine Allergy Vomiting Uncoded 11/27/19 12:14 contrast dye Allergy See Comment Uncoded 11/27/19 12:14 Home Medications: Home Medications Levothyroxine TAB* [Synthroid 75 MCG TAB*] 37.5 mcg PO DAILY #15 tab 09/28/19 [ Rx Confirmed 11/27/19] Cetirizine* [ZyrTEC 10 MG TAB*] 5 mg PO .1-2X/DAY 10/21/19 [History Confirmed ] Losartan TAB* [Cozaar TAB*] 50 mg PO DAILY 10/21/19 [History Confirmed 11/27/19] traMADol TAB* [Ultram*] 50 mg PO Q6HR PRN #30 tab MDD 4 10/21/19 [Rx Confirmed 11/27/19] Cetirizine* [ZyrTEC 10 MG TAB*] 5 mg PO DAILY #20 tab 11/27/19 [Rx] Estradiol (NF) 0.5 mg PO DAILY 11/27/19 [History Confirmed 11/27/19] Levothyroxine Sodium 37.5 mcg PO DAILY #10 tablet 11/27/19 [Rx] Losartan TAB* [Cozaar TAB*] 25 mg PO DAILY #20 tab 11/27/19 [Rx] Progesterone CAP (NF) [Prometrium (NF)] 200 mg PO DAILY 11/27/19 [History Confirmed 11/27/19] PMH/Surg Hx/FS Hx/Imm Hx Previously Healthy: Yes Endocrine/Hematology History: Reports: Hx Thyroid Disease Denies: Hx Anticoagulant Therapy, Hx Blood Disorders, Hx Blood Transfusions, Hx Bone Marrow Disease, Hx Diabetes, Hx Sickle Cell Disease, Hx Unexplained Bleeding Cardiovascular History: Reports: Hx Hypertension Denies: Hx Pacemaker/ICD Respiratory History: Reports: Hx Chronic Obstructive Pulmonary Disease (COPD) - emphysema Denies: Hx Asthma History: Denies: Hx Renal Disease Musculoskeletal History: Reports: Hx Back Problems Denies: Hx Osteoporosis Sensory History: Reports: Hx Contacts or Glasses Opthamlomology History: Reports: Hx Contacts or Glasses Neurological History: Reports: Hx Migraine Denies: Hx Dementia, Hx Developmental Delay, Hx Headaches, Hx Seizures, Hx Spinal Cord Injury, Hx Transient Ischemic Attacks (TIA), Other Neuro Impairments /Disorders Psychiatric History: Reports: Hx Inpatient Treatment, Hx Community Mental Health Tx, Hx Schizophrenia, Hx Bipolar Disorder, Hx Substance Abuse, Other Psychiatric Issues/Disorders - schizoaffective d/o Denies: Hx Anxiety, Hx Attention Deficit Hyperactivity Disorder, Hx Eating Disorder, Hx Depression, Hx Panic Disorder, Hx Post Traumatic Stress Disorder, Hx of Violent Episodes Against Others - Surgical History Surgery Procedure, Year, and Place: hysterectomy. TRIPLE HERNIA. DEVIATED SEPTUM - Immunization History Hx Pertussis Vaccination: No Immunizations Up to Date: Unable to Obtain/Confirm Infectious Disease History: No Infectious Disease History: Reports: Hx Hepatitis - Hep B&C Denies: Hx Clostridium Difficile, Hx Human Immunodeficiency Virus (HIV), Hx Shingles, Hx Tuberculosis, Traveled Outside the [place] in Last 30 Days - Family History Known Family History: Positive: Other - neg: mental health illnesses, Non- Contributory - Social History Occupation: Unemployed, Disabled Lives: Alone Alcohol Use: Occasionally Alcohol Amount: "not much" Hx Substance Use: Yes Substance Use Type: Reports: None Hx Tobacco Use: Yes Smoking Status (MU): Heavy Every Day Tobacco Smoker Type: Cigarettes Have You Smoked in the Last Year: Yes Review of Systems Negative: Fever, Chills, Fatigue, Skin Diaphoresis Negative: Shortness Of Breath, Cough Genitourinary: Negative Positive: no symptoms reported, see HPI Negative: Arthralgia, Myalgia Negative: Rash, Bruising Negative: Headache, Weakness Positive: Other - patient has psych hx, hallucinations and paranoia All Other Systems Reviewed And Are Negative: Yes Physical Exam Triage Information Reviewed: Yes Vital Signs On Initial Exam: Initial Vitals Temp Pulse Resp BP Pulse Ox 98.9 F 78 16 145/109 96 11/27/19 12:11 11/27/19 12:11 11/27/19 12:11 11/27/19 12:11 11/27/19 12:11 Vital Signs Reviewed: Yes Appearance: Positive: Well-Appearing, Well-Nourished Skin: Positive: Skin Color Reflects Adequate Perfusion Head/Face: Positive: Normal Head/Face Inspection Eyes: Positive: EOMI, Conjunctiva Clear Respiratory/Lung Sounds: Positive: Clear to Auscultation, Breath Sounds Present Cardiovascular: Positive: Pulses are Symmetrical in both Upper and Lower Extremities Musculoskeletal: Positive: Strength/ROM Intact Psychiatric: Positive: Other - paranoia Procedures - Sedation Patient Received Moderate/Deep Sedation with Procedure: No Diagnostics - Vital Signs Vital Signs Temp Pulse Resp BP Pulse Ox 11/27/19 13:46 98.9 F 83 18 145/109 98 11/27/19 12:11 98.9 F 78 16 145/109 96 - Laboratory Lab Statement: Any lab studies that have been ordered have been reviewed, and results considered in the medical decision making process. Complex Multi-Symp Course/Dx Course Of Treatment: Patient has been coming to the ED and UC multiple times with requests for tramadol refills d/t "chronic pain." It was explained to the patient she will need a PCP for further evaluation and that I would not be refilling her prescription of tramadol. I have agreed to refill her rx of losartan, certizine and levothyroxine. I believe she will also need to see a counselor and I have asked her to [facility] with [facility] to [facility] care. I have taken care of this patient in the past, and I believe patient to be at her baseline. Pt is in no acute distress. - Diagnoses Provider Diagnoses: Medication refill Discharge ED - Sign-Out/Discharge Documenting (check all that apply): Patient Departure - Discharge Plan Condition: Stable Disposition: HOME Prescriptions: Cetirizine* [ZyrTEC 10 MG TAB*] 5 mg PO DAILY #20 tab Levothyroxine Sodium 37.5 mcg PO DAILY #10 tablet Losartan TAB* [Cozaar TAB*] 25 mg PO DAILY #20 tab Referrals: [facility] [Outside] No Primary Care Phys,NOPCP [Primary Care Provider] - Additional Instructions: Please follow up with [facility] - Billing Disposition and Condition Condition: STABLE Disposition: Home
== END 2019-11-27 13:46 | disposition home or self-care (01) ==
LOC: ED 12:09
DX: E07.9 Disorder of thyroid, unspecified (principal); I10 Essential (primary) hypertension; Z76.0 Encounter for issue of repeat prescription; Z79.899 Other long term (current) drug therapy; Z91.09 Other allergy status, other than to drugs and biological substances; Z88.0 Allergy status to penicillin; Z91.041 Radiographic dye allergy status; F17.210 Nicotine dependence, cigarettes, uncomplicated
CPT/HCPCS: 99282

== ENCOUNTER 2019-12-10 09:43 | Emergency (ER) | payer MEDICARE, MEDICAID ==
[2019-12-10 10:11] VITALS: BP 140/79
--- NOTE | 2019-12-10 10:12 | UC ---
Back Pain HPI - HPI Summary HPI Summary: patient states she has an appointment with DR. Baker on 12/15 and needs maintenance meds to cover until then (Tramadol, synthoid) she is complaining of low back pain for 2 day since ran out of tramadol - History of Current Complaint Stated Complaint: MEDICATION REFILL Time Seen by Provider: 12/10/19 10:00 Hx Obtained From: Patient Onset/Duration: Gradual Onset - 2 days back pain Timing: Constant Severity Initially: Mild Severity Currently: Mild Pain Intensity: 0 Back Pain: Is Discrete @ - lower back Character: Stiffness Aggravating Factor(s): Movement Alleviating Factor(s): Rest, Position Associated Signs And Symptoms: Positive: Negative - Allergies/Home Medications Allergies/Adverse Reactions: Allergies Allergy/AdvReac Type Severity Reaction Status Date / Time blue dye Allergy Anaphylatic Verified 12/10/19 10:11 Shock Penicillins Allergy Hallucinati Verified 12/10/19 10:11 ons red dye Allergy Anaphylatic Verified 12/10/19 10:11 Shock chlorine Allergy Vomiting Uncoded 12/10/19 10:11 contrast dye Allergy See Comment Uncoded 12/10/19 10:11 Home Medications: Home Medications Levothyroxine TAB* [Synthroid 75 MCG TAB*] 37.5 mcg PO DAILY #15 tab 09/28/19 [ Rx Confirmed 12/10/19] traMADol TAB* [Ultram*] 50 mg PO Q6HR PRN #30 tab MDD 4 10/21/19 [Rx Confirmed 12/10/19] Cetirizine* [ZyrTEC 10 MG TAB*] 5 mg PO DAILY #20 tab 11/27/19 [Rx Confirmed ] Estradiol (NF) 0.5 mg PO DAILY 11/27/19 [History Confirmed 12/10/19] Losartan TAB* [Cozaar TAB*] 25 mg PO DAILY #20 tab 11/27/19 [Rx Confirmed ] Progesterone CAP (NF) [Prometrium (NF)] 200 mg PO DAILY 11/27/19 [History Confirmed 12/10/19] Levothyroxine Sodium [Synthroid] 75 mcg PO DAILY #15 tablet 12/10/19 [Rx] Tramadol HCl 50 mg PO Q8HR PRN #21 tablet MDD 3 12/10/19 [Rx] PMH/Surg Hx/FS Hx/Imm Hx Previously Healthy: Yes Endocrine History: Hypothyroidism Cardiovascular History: Hypertension Psychological History: Anxiety Other History Of: Negative For: Anticoagulant Therapy - Surgical History Surgical History: Yes Surgery Procedure, Year, and Place: hysterectomy. TRIPLE HERNIA. DEVIATED SEPTUM - Family History Known Family History: Positive: Other - neg: mental health illnesses, Non- Contributory - Social History Occupation: Disabled Lives: Alone Alcohol Use: Occasionally Alcohol Amount: "not much" Substance Use Type: None Smoking Status (MU): Heavy Every Day Tobacco Smoker Type: Cigarettes Have You Smoked in the Last Year: Yes Household Exposure Type: Cigarettes Cessation Counseling: Patient Advised to Stop - Immunization History Most Recent Influenza Vaccination: unknown Most Recent Tetanus Shot: unknown Most Recent Pneumonia Vaccination: never Review of Systems All Other Systems Reviewed And Are Negative: Yes Constitutional: Positive: Negative Skin: Positive: Negative. Negative: Rash Respiratory: Positive: Negative Cardiovascular: Positive: Negative Musculoskeletal: Positive: Other: - low back pain. Negative: Decreased ROM Neurological/Mental Status: Negative: Weakness, Numbness Psychological: Positive: Negative Is Patient Immunocompromised?: No Physical Exam Triage Information Reviewed: Yes Appearance: Well-Appearing, No Pain Distress, Well-Nourished Vital Signs: Initial Vital Signs Temp 97.8 F 12/10/19 09:58 Pulse 62 12/10/19 09:58 Resp 18 12/10/19 09:58 BP 140/79 12/10/19 09:58 Pulse Ox 99 12/10/19 09:58 Vital Signs Reviewed: Yes Neck exam: Normal Neck: Positive: Supple Respiratory Exam: Normal Respiratory: Positive: Lungs clear Cardiovascular Exam: Normal Cardiovascular: Positive: RRR Musculoskeletal Exam: Normal Musculoskeletal: Positive: Strength Intact, ROM Intact Neurological Exam: Normal Neurological: Positive: Alert Psychological Exam: Normal - for patient Skin Exam: Normal Back Pain Course/Dx - Course Course Of Treatment: iStop Reference #: [id number] - Differential Dx/Diagnosis Differential Diagnosis/HQI/PQRI: Strain, Sprain, Other - chronic pain Provider Diagnosis: Lumbago, Medication refill Discharge ED - Sign-Out/Discharge Documenting (check all that apply): Patient Departure All imaging exams completed and their final reports reviewed: No Studies - Discharge Plan Condition: Good Disposition: HOME Prescriptions: Levothyroxine Sodium [Synthroid] 75 mcg PO DAILY #15 tablet Tramadol HCl 50 mg PO Q8HR PRN #21 tablet MDD 3 PRN Reason: Pain - Moderate Patient Education Materials: Back Pain (ED) Referrals: No Primary Care Phys,NOPCP [Primary Care Provider] - 1 Week (Dr. Baker as scheduled next week) Additional Instructions: take your medication as directed You need to follow-up with your primary care provider for future maintenance medication (tramadol and levothyroxine) - Billing Disposition and Condition Condition: GOOD Disposition: Home - Attestation Statements Provider Attestation: I was available for consult. This patient was seen by the [facility]. The patient was not presented to , seen by or examined by tn -Heather Snell MD
== END 2019-12-10 10:37 | disposition home or self-care (01) ==
LOC: UCEAST 09:43
DX: M54.5 Low back pain (principal); E03.9 Hypothyroidism, unspecified; Z76.0 Encounter for issue of repeat prescription; I10 Essential (primary) hypertension; Z79.890 Hormone replacement therapy; Z79.891 Long term (current) use of opiate analgesic; Z79.899 Other long term (current) drug therapy; Z91.041 Radiographic dye allergy status; Z88.0 Allergy status to penicillin; Z91.09 Other allergy status, other than to drugs and biological substances; F17.210 Nicotine dependence, cigarettes, uncomplicated
CPT/HCPCS: 99212; G0463